=== PATIENT | female | born 1965 | race Caucasian/White ===

== ENCOUNTER → 2020-03-18 13:16 | Outpatient (BNVA) | payer SELFPAY | PROVIDERS: Visit Provider Emergency Medicine | DX: N89.8 Other specified noninflammatory disorders of vagina (principal) | CPT/HCPCS: 81000; 87086; 87491; 87591; 87661 ==

== ENCOUNTER 2023-02-27 17:25 | Inpatient (IN) | payer MEDICAID, SELFPAY ==
[2023-02-27] VITALS (11 sets, daily range): BP systolic 78–101; BP diastolic 53–65; PULSE 107–135; RESP 19–41; O2SAT 92–98; BMI 29.1
--- NOTE | 2023-02-27 17:32 | XRR_ITS ---
PROCEDURE INFORMATION: Exam: XR Chest Exam date and time: 02/27/2023 5:45 PM Age: 57 years old Clinical indication: Shortness of breath; Additional info: Dyspnea TECHNIQUE: Imaging protocol: Radiologic exam of the chest. Views: 1 view. COMPARISON: No relevant prior studies available. FINDINGS: Lungs: 9.2 cm round masslike consolidation in the left upper lobe. Mild atelectasis in the left lung base. The right lung is clear. Pleural spaces: Unremarkable. No pleural effusion. No pneumothorax. Heart/Mediastinum: Unremarkable. No cardiomegaly. Diaphragm: Mild elevation of the right diaphragm. Bones/joints: Mild thoracic curvature. XR/XR chest 1V portable [id number] IMPRESSION: 1. Masslike consolidation in the left upper lobe. This could represent round pneumonia but a large malignant neoplasm is not excluded. Follow-up with a CT chest is recommended.
--- NOTE | 2023-02-27 17:43 | W.ED.SOB ---
HPI - SOB/Dyspnea General: Chief Complaint: Shortness of Breath/Dyspnea Stated Complaint: resp distress Time Seen by Provider: 02/27/23 17:29 History of Present Illness: HPI Narrative: Patient presents to the ER by EMS with complaints of overall body aches and shortness of breath. She also says she has chest pain when she coughs. Patient says she has had a fever but upon admission here she does not have a fever. EMS said when she walked to the ambulance her sat was 75% on room air. Patient gave 1-03/07 albuterol nebulizer treatments and 1 DuoNeb treatment on route. Patient was going to get aspirin for EMS but she refused it. Patient's O2 sat upon arrival was 98% on 4 L respirations 22 with a heart rate of 135 beats a minute. Review of Systems General: Reports: 10 or more systems reviewed and unremarkable except in HPI and below PFSH ED PFSH: Social History Smoking and tobacco/nicotine status: current every day tobacco/nicotine user cigarettes Alcohol intake: current Alcohol intake frequency: few times a month Substance/Drug Use: never Physical Exam Const: COMMON NORMALS: no acute distress, average body habitus, patient oriented x3, no limitations, healthy appearing, alert and well nourished HENMT: COMMON NORMALS: normocephalic, atraumatic, hearing grossly normal bilaterally, external ears normal, Normal external nose present, moist oral mucous membranes and oropharynx normal HEAD & SCALP: normocephalic and atraumatic NOSE: Normal external nose present EXTERNAL EAR: Yes external ears normal Eye: COMMON NORMALS: Equal, round and reactive pupils present, EOMs intact bilaterally, conjunctivae normal and no scleral icterus CONJUNCTIVA: Yes conjunctivae normal PUPIL: Yes Equal, round and reactive pupils present Neck/C-Spine: COMMON NORMALS: no JVD Chest: COMMONS NORMALS: normal inspection of the chest and normal palpation of entire chest wall Resp: COMMON NORMALS: normal respiratory effort, No retractions and No use of accessory muscles; negative for clear to auscultation bilaterally (Diffuse rhonchi bilaterally) AUSCULTATION: not clear to auscultation bilaterally (Diffuse rhonchi bilaterally) Cardio: COMMON NORMALS: no JVD, regular rhythm, S1 normal heart sound present, S2 normal heart sound present, No gallops present (Cardio), No clicks present (Cardio), No murmurs present (Cardio) and No rub (Cardio); negative for regular rate (Tachycardic) RATE: abnormal rate (Tachycardic) RHYTHM: regular rhythm HEART SOUNDS: S1 normal heart sound present and S2 normal heart sound present GI: COMMON NORMALS: Normal to inspection, nondistended, normoactive bowel sounds present, Soft to palpation, non-tender, No hepatosplenomegaly present and no masses PALPATION: Yes Soft to palpation and Yes No hepatosplenomegaly present Neuro: COMMON NORMALS: patient oriented x3 SENSORIUM/ORIENTATION: Yes alert Course Vital Signs: Vital signs: Vital Signs Pulse Rate 135 H 02/27/23 17:36 Respiratory Rate 22 H 02/27/23 17:36 Blood Pressure 101/57 02/27/23 17:36 Pulse Oximetry 98 02/27/23 17:36 Oxygen Delivery Me thod Nasal Cannula 02/27/23 17:36 Oxygen Flow Rate 4 02/27/23 17:36 MDM - SOB/Dyspnea Medical Decision Making Patient had lab work done that showed a white count of 25.9 potassium 3.1 elevated BUN/creatinine of 28 and 2.6 and magnesium 1.2 elevated procalcitonin at 35.37 negative for influenza and COVID. X-ray and CT scan showed a large masslike consolidation in the left upper lobe could represent pneumonia or neoplasm. Patient was given 1 g magnesium, 2 L normal saline bolus, 3.375 g of Zosyn, Dr. Hennessy was consulted who agreed patient needed inpatient treatment for further evaluation. Differential Diagnosis Likely community acquired pneumonia; Unlikely acute exacerbation of chronic obstructive airways disease, congestive heart failure, asthma with exacerbation or pulmonary embolism Medical Records I reviewed the patient's medical records. Lab Data I reviewed the patient's lab results. 02/27/23 17:54 02/27/23 17:54 Labs/Radiology: Radiology Impressions Chest X-Ray 02/27/23 17:32 IMPRESSION: 1. Masslike consolidation in the left upper lobe. This could represent round pneumonia but a large malignant neoplasm is not excluded. Follow-up with a CT chest is recommended. Chest CT 02/27/23 18:37 IMPRESSION: 1. Large masslike consolidation in the left upper lobe with loss of air bronchograms. This could represent pneumonia, but a malignant neoplasm can not be excluded. Consider non-emergent PET/CT, or tissue sampling.(Reference: Iban) 2. Prominent axillary, mediastinal, and left hilar lymph nodes are most likely reactive. Neoplastic involvement can not be entirely excluded. References: Iban Cabezas et al. Guidelines for Management of Incidental Pulmonary Nodules Detected on CT Images: From the Fleischner Society 2017. Radiology. 2017;284(1):228-243. Laboratory Results WBC 25.92 10^3/uL (3.29-11.43) H 02/27/23 17:54 RBC 3.86 10^6/uL (3.85-5.65) 02/27/23 17:54 Hgb 11.70 g/dL (11.27-16.99) 02/27/23 17:54 Hct 34.8 % (36-47) L 02/27/23 17:54 MCV 90.2 fl (85-98) 02/27/23 17:54 MCH 30.3 pg (27-33) 02/27/23 17:54 MCHC 33.6 g/dL (30-55) 02/27/23 17:54 RDW 13.1 % (12.1-15.1) 02/27/23 17:54 Plt Count 360 10^3/cmm (157-399) 02/27/23 17:54 MPV 8.8 fL (7.4-10.4) 02/27/23 17:54 Lymph % (Auto) Not Reportable 02/27/23 17:54 [place] % (Auto) Not Reportable 02/27/23 17:54 Lymph # (Auto) Not Reportable 02/27/23 17:54 [place] # (Auto) Not Reportable 02/27/23 17:54 Total Counted 100 (0-100) 02/27/23 17:54 Atypical Lymphs % Not Reportable 02/27/23 17:54 Absolute Neutrophils 23.1 10^3/cmm (1.4-6.5) H 02/27/23 17:54 Segmented Neutrophils 84 % 02/27/23 17:54 Abs Segm Neuts (Man) 21.8 10/cmm (1.6-7.1) H 02/27/23 17:54 Band Neutrophils 5.0 % 02/27/23 17:54 Abs Band Neuts (Man) 1.3 10^3/cmm (0.0-1.2) H 02/27/23 17:54 Lymphocytes (Manual) 4 % 02/27/23 17:54 Monocytes (Manual) 1.0 % 02/27/23 17:54 Absolute Monocytes 0.3 10^3/cmm (0.1-0.6) 02/27/23 17:54 Eosinophils (Manual) 0 % 02/27/23 17:54 Absolute Eosinophils 0.0 10^3/cmm (0.0-0.7) 02/27/23 17:54 Basophils (Manual) 0.0 % 02/27/23 17:54 Absolute Basophils 0.0 10^3/cmm (0.0-0.2) 02/27/23 17:54 Platelet Estimate Normal (Normal) 02/27/23 17:54 Giant Platelets Trace 02/27/23 17:54 Sodium 128 mmol/L (136-145) L 02/27/23 17:54 Potassium 3.1 mmol/L (3.5-5.1) L 02/27/23 17:54 Chloride 92 mmol/L (98-107) L 02/27/23 17:54 Carbon Dioxide 19 mmol/L (22-29) L 02/27/23 17:54 Anion Gap 20.1 (5-19) H 02/27/23 17:54 BUN 28 mg/dL (6-20) H 02/27/23 17:54 Creatinine 2.6 mg/dL (0.5-0.9) H 02/27/23 17:54 GFR Calculation 19.0 mL/min (90-130) L 02/27/23 17:54 Glucose 137 mg/dL (65-115) H 02/27/23 17:54 Calculated Osmolality 274 mOsm/kg (285-295) L 02/27/23 17:54 Calcium 7.8 mg/dL (8.5-10.5) L 02/27/23 17:54 Magnesium 1.2 mg/dL (1.7-2.3) L 02/27/23 17:54 Total Bilirubin 0.8 mg/dL (0.15-1.2) 02/27/23 17:54 AST 13 U/L (0-32) 02/27/23 17:54 ALT 7 U/L (0-33) 02/27/23 17:54 Alkaline Phosphatase 89 U/L (35-105) 02/27/23 17:54 Troponin T Baseline 38 ng/L (0-10) H 02/27/23 17:54 Total Protein 6.0 g/dL (6.6-8.7) L 02/27/23 17:54 Albumin 3.4 g/dL (3.5-5.2) L 02/27/23 17:54 Globulin 2.6 g/dL (1.3-4.6) 02/27/23 17:54 Procalcitonin 35.37 ng/mL (0-0.5) H 02/27/23 17:54 Influenza Type A Ag negative (Negative) 02/27/23 18:30 Influenza Type B Ag negative (Negative) 02/27/23 18:30 SARS-CoV-2 Ag (Rapid) Negative (Negative) 02/27/23 18:30 All radiology interpretation(s) finalized by discharge EKG Data EKG 1: I personally reviewed and interpreted this EKG as follows: EKG Interpretation Date: 02/27/23 EKG interpretation time: 17:45 Prior EKG tracings: not available for review Interpretation: EKG showed ventricular rate 132 beats minute, SC interval 168, QRS duration 82, QTc of 360, sinus tachycardia Discharge Plan Discharge Patient Disposition: Admitted As Inpatient Clinical Impression: Community acquired pneumonia, Mass of upper lobe of left lung, Leukocytosis, Hypomagnesemia, Acute hypoxemic respiratory failure Condition: Stable Coding Level of Care Code ED [employer] Pump Tender for Judith Lenz
--- NOTE | 2023-02-27 17:45 | ECG_ITS ---
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 Measurements Intervals [place] Rate: 132 P: 60 MN: 168 QRS: 80 QRSD: 82 T: 65 QT: 282 QTc: 418 Interpretive Statements SINUS TACHYCARDIA No previous ECG available for comparison Electronically Signed On 02-27-2023 22:58:18 [employer] by Leland Wu M.D. [id number]
[2023-02-27 18:01] LABS: Hematocrit 34.8 % (36-47); Mean Corpuscular HGB Conc 33.6 g/dL (30-55); Mean Corpuscular Hemoglobin 30.3 pg (27-33); Mean Corpuscular Volume 90.2 fl (85-98); Mean Platelet Volume 8.8 fL (7.4-10.4); Platelet Count 360 10^3/cmm (157-399); Red Blood Count 3.86 10^6/uL (3.85-5.65); Red Cell Distribution Width 13.1 % (12.1-15.1); White Blood Count 25.92 10^3/uL (3.29-11.43)
[2023-02-27] MEDS: sodium chloride 0.9% 1,000 ML 999 ML IV ×3 (18:18→21:35)
[2023-02-27 18:28] LABS: Troponin(5th) Baseline 38 ng/L (0-10)
[2023-02-27 18:32] LABS: Alanine Aminotransferase 7 U/L (0-33); Albumin Level 3.4 g/dL (3.5-5.2); Alkaline Phosphatase 89 U/L (35-105); Anion Gap 20.1 (5-19); Aspartate Amino Transferase 13 U/L (0-32); Blood Urea Nitrogen 28 mg/dL (6-20); Calcium 7.8 mg/dL (8.5-10.5); Carbon Dioxide 19 mmol/L (22-29); Chloride 92 mmol/L (98-107); Globulin 2.6 g/dL (1.3-4.6); Glucose 137 mg/dL (65-115); Magnesium 1.2 mg/dL (1.7-2.3); Osmolality Calculated 274 mOsm/kg (285-295); Potassium 3.1 mmol/L (3.5-5.1); Sodium 128 mmol/L (136-145); Total Bilirubin 0.8 mg/dL (0.15-1.2)
--- NOTE | 2023-02-27 18:37 | CTR_ITS ---
PROCEDURE INFORMATION: Exam: CT Chest Without Contrast; Diagnostic Exam date and time: 02/27/2023 6:35 PM Age: 57 years old Clinical indication: Shortness of breath; Additional info: Abnormal cxr, mass, hypoxia, tachycardia TECHNIQUE: Imaging protocol: Diagnostic computed tomography of the chest without contrast. Radiation optimization: All CT scans at this facility use at least one of these dose optimization techniques: automated exposure control; mA and/or kV adjustment per patient size (includes targeted exams where dose is matched to clinical indication); or iterative reconstruction. REPORTING DATA: Count of CT and Cardiac NM exams in prior 12 months: This patient has received 0 known CTs and 0 known cardiac nuclear medicine studies in the 12 months prior to the current study. COMPARISON: CR (CHEST, ) 02/27/2023 5:45 PM RADIATION DOSE METRICS: Total DLP (mGy-cm): 446.81 FINDINGS: Lungs: 10.1 cm masslike consolidation in the superior peripheral left upper lobe with loss of air bronchograms. Mild dependent atelectasis in the left lower lobe. The lungs are otherwise clear. Pleural spaces: Trace left pleural effusion. No pneumothorax. Heart: No coronary artery calcifications. No cardiomegaly. No pericardial effusion. Lymph nodes: Prominent axillary, mediastinal and left hilar lymph nodes, measuring less than 1.0 cm short axis. Vasculature: Unremarkable. No aortic aneurysm. Liver: Hepatomegaly with diffuse fatty infiltration. Bones/joints: Mild degenerative changes of the spine. No fracture or destructive bone lesion identified. Soft tissues: Unremarkable. CT/CT chest wo con [id number] IMPRESSION: 1. Large masslike consolidation in the left upper lobe with loss of air bronchograms. This could represent pneumonia, but a malignant neoplasm can not be excluded. Consider non-emergent PET/CT, or tissue sampling.(Reference: Iban) 2. Prominent axillary, mediastinal, and left hilar lymph nodes are most likely reactive. Neoplastic involvement can not be entirely excluded. References: Iban Cabezas et al. Guidelines for Management of Incidental Pulmonary Nodules Detected on CT Images: From the Fleischner Society 2017. Radiology. 2017;284(1):228-243.
[2023-02-27 18:39] LABS: Procalcitonin 35.37 ng/mL (0-0.5)
[2023-02-27 18:51] LABS: Absolute Neutrophil 23.1 10^3/cmm (1.4-6.5); Absolute Segmented Neutrophil 21.8 10/cmm (1.6-7.1); Band Neutrophils Absolute 1.3 10^3/cmm (0.0-1.2); Eosinophils 0 %; Giant Platelets Trace; Lymphocytes 4 %; Monocytes Absolute 0.3 10^3/cmm (0.1-0.6); Platelet Estimate Normal (Normal); Segmented Neutrophils 84 %; Slide Review Slide Review Perform; Total Cells Counted 100 (0-100)
[2023-02-27 18:55] LABS: Influenza A by IFA negative (Negative); Influenza B by IFA negative (Negative)
[2023-02-27 18:58] LABS: SARS Covid-2 Antigen Negative (Negative)
[2023-02-27] MEDS: piperacillin-tazobactam 3.375 GM in sodium chloride 0.9% (plus) 50 ML IV (20:00)
[2023-02-27 20:50] LABS: Troponin 5 2HR 27.83 ng/L (0-10)
[2023-02-27] MEDS: acetaminophen 500 mg Tablet 1000 MG PO (20:53)
[2023-02-27 21:01] LABS: Lactic Sepsis W/Reflex 4.6 mmol/L (0.5-2.2)
--- NOTE | 2023-02-27 22:04 | ECG_ITS ---
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 Measurements Intervals [place] Rate: 116 P: 55 TN: 170 QRS: 79 QRSD: 88 T: 65 QT: 315 QTc: 439 Interpretive Statements SINUS TACHYCARDIA Compared to ECG 02/27/2023 17:45:16 No significant changes Electronically Signed On 02-27-2023 23:00:33 PROJECT DEVELOPMENT DIRECTOR by Leland Wu M.D. [id number]
[2023-02-27] MEDS: norepinephrine 4 MG/250 ML BAG 18.75 MG IV (22:10)
--- NOTE | 2023-02-27 22:13 | CTR_ITS ---
PROCEDURE INFORMATION: Exam: CT Abdomen And Pelvis Without Contrast Exam date and time: 02/27/2023 10:25 PM Age: 57 years old Clinical indication: Other: Rubio/hypotension; Patient HX: Rubio with hypotension; Additional info: Rubio, evalaute for hydronpehrosis, rubio, evaluate for hydro nephrosis TECHNIQUE: Imaging protocol: Computed tomography of the abdomen and pelvis without contrast. Radiation optimization: All CT scans at this facility use at least one of these dose optimization techniques: automated exposure control; mA and/or kV adjustment per patient size (includes targeted exams where dose is matched to clinical indication); or iterative reconstruction. REPORTING DATA: Count of CT and Cardiac NM exams in prior 12 months: This patient has received 0 known CTs and 0 known cardiac nuclear medicine studies in the 12 months prior to the current study. COMPARISON: CT chest wo con [id number] 02/27/2023 6:35 PM RADIATION DOSE METRICS: Total DLP (mGy-cm): 875.8 FINDINGS: Liver: Hepatomegaly with diffuse fatty infiltration. No suspicious nodule. Gallbladder and bile ducts: Multiple small calcified stones in a contracted gallbladder. The bile ducts are normal. Pancreas: Normal. No ductal dilation. Spleen: Normal. No splenomegaly. Adrenal glands: Normal. No mass. Kidneys and ureters: Normal. No hydronephrosis. Stomach and bowel: 3.2 cm fat density oval lipoma arising from the posterior wall of the mid stomach. The stomach is otherwise unremarkable. Diverticulosis of the colon. No diverticulitis. The small bowel is unremarkable. No wall thickening or obstruction. Appendix: The appendix is visualized and is normal. Intraperitoneal space: Unremarkable. No free air. No significant fluid collection. Vasculature: Unremarkable. No abdominal aortic aneurysm. Lymph nodes: Unremarkable. No enlarged lymph nodes. Urinary bladder: Unremarkable as visualized. Reproductive: Unremarkable as visualized. Bones/joints: Degenerative changes of the spine. No acute fracture. Soft tissues: Fat containing bilateral inguinal hernias. CT/CT abdomen pelvis wo con [id number] IMPRESSION: 1. No acute findings. 2. Contracted gallbladder with multiple small calcified stones. 3. 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
[2023-02-27 22:17] LABS: Reflex Lactate Order REFLEX LACTIC ORDERD
--- NOTE | 2023-02-27 22:18 | P.HP_ITS ---
Providers/Chief Complaint 2 Admitting Physician: Lexus Navarro MD Primary Care Provider: Conrado Wills Chief Complaint: resp distress History of Present Illness Brandi Reyez is a 57 year old female who is coming to the hospital today with chief complaints of 4 to 5 days of worsening chest discomfort and dyspnea on exertion. Patient states that she was in her usual state of health about 5 days ago when she developed a runny nose and flulike symptoms. Symptoms continued to progress over the next 4 to 5 days when she started feeling short of breath with usual activities. Today she is needing 4 L/min, never previously having been on oxygen. Has a mostly dry cough, minimal expectoration. No hemoptysis. She had 1 episode of vomiting today. No diarrhea. No abdominal pain. She is a chronic smoker. No known history of asthma or COPD. States that she has not peed in the last 24 hours and feels very dehydrated. Endorses fatigue. Sick contacts at home with a young grandson with similar symptoms. Past history notable for history of GI bleeding, patient states that her stomach blew out and she lost a lot of blood. States that bleeding was controlled by cauterization. These events happened at a hospital in [facility] about 2 years ago. She does not know if she had a ulcer or other mass lesions at that time. She was scheduled to undergo an endoscopy in the last 4 to 5 days, however was unable to get it because she felt unwell. Reports she also had double pneumonia earlier this year. She is unvaccinated for influenza. CT of her chest shows large Left-sided masslike consolidation with loss of air bronchograms. Possibly pneumonia given her current history. Possibility of malignant neoplasm not excluded. Prominent axillary mediastinal and lymph nodes noted which are thought to be reactive. Has been experiencing chills. Initially upon ER arrival her blood pressure was well-maintained, however subsequently she developed hypotension and spite of 2 L fluid resuscitation. At the time of my examination blood pressure is 69/53. Requested additional 1 L fluid bolus now and initiation of Levophed infusion. Review of Systems 2 General: Reports: 10 or more systems reviewed and unremarkable except in HPI and below Const: Denies: fever(s), chills or body aches Eyes: Denies: change in vision, blurry vision or photophobia ENMT: Reports: hoarseness; Denies: throat pain, enlarged tonsils, odynophagia or nasal congestion Card: Denies: chest pain, palpitations, irregular heart rhythm, edema, swelling of feet/ankles, lightheadedness, pre-syncope, dyspnea on exertion or orthopnea Resp: Denies: dyspnea, productive cough, non-productive cough, wheezing, stridor, pain on inspiration, change in phlegm color, hemoptysis or chest congestion GI: Denies: abdominal pain, nausea, vomiting, hematemesis, coffee ground emesis, dysphagia, heartburn, diarrhea, constipation, GI cramping, change in stool character, hematochezia or melena : Denies: flank pain, difficulty voiding, dysuria, urinary frequency, urinary urgency, urinary hesitancy or hematuria Musc: Denies: neck pain, back pain, extremity pain, joint swelling, joint warmth or deformity Neuro: Denies: headache(s), numbness in extremities, weakness in extremities, sensory changes, difficulty walking, frequent falls, dizziness, vertigo, behavioral changes, Slurred speech present or seizure-like activity Psych: Denies: anxiety, depression, suicidal ideation or homicidal ideation Endo: Denies: polyuria, polydipsia, tired all the time, cold intolerance or hot flashes Larry/Lymph: Denies: easy bruising or easy bleeding Medications/Allergies Home Medications Medication Instructions Recorded Confirmed Last Taken Type azithromycin 500 mg tablet 1,000 mg (2 x 500 mg) PO .COMPLEX 03/18/20 03/18/20 Unknown Rx 1 day #2 tabs metronidazole 500 mg tablet 500 mg PO Q8H 7 days #21 tabs 03/18/20 03/18/20 Unknown Rx Allergies Allergy/AdvReac Type Severity Reaction Status Date / Time No Known Allergies Allergy Verified 03/18/20 12:41 PFSH Acute 2 PFSH: Medical History (Updated 02/27/23 @ 23:51 by Lexus Navarro MD) History of GI bleed Social History Smoking and tobacco/nicotine status: current every day tobacco/nicotine user cigarettes Alcohol intake: current Alcohol intake frequency: few times a month Substance/Drug Use: never Vitals/I&O/Wt Last Vital Signs Pulse 120 H 02/27/23 21:44 Resp 23 H 02/27/23 21:44 BP 78/53 02/27/23 21:44 Pulse Ox 96 02/27/23 21:44 O2 Del Method Nasal Cannula 02/27/23 17:36 O2 Flow Rate 4 02/27/23 17:36 02/27/23 02/27/23 02/27/23 06:59 14:59 22:59 Intake Total 2049 Balance 2049 Weight last 48 hrs Weight 79.379 kg Physical Exam 2 Narrative: General: Extremely anxious, AO x3 HEENT: PERRLA, pupils bilaterally equal and reactive, pallors not present Chest: Normal vesicular breath sounds, no added sounds, equal good air entry bilaterally CVS: S1-S2 regular, no murmurs, no tachycardia, no gallops, no rubs Abdomen: Soft, nontender, no organomegaly, bowel sounds present Neuro: No focal deficits, no facial deformity, AO x3, power 5/5 in all limbs, capillary refill normal Data 02/27/23 17:54 02/27/23 17:54 Other data: Radiology Impressions Chest X-Ray 02/27/23 17:32 IMPRESSION: 1. Masslike consolidation in the left upper lobe. This could represent round pneumonia but a large malignant neoplasm is not excluded. Follow-up with a CT chest is recommended. Chest CT 02/27/23 18:37 IMPRESSION: 1. Large masslike consolidation in the left upper lobe with loss of air bronchograms. This could represent pneumonia, but a malignant neoplasm can not be excluded. Consider non-emergent PET/CT, or tissue sampling.(Reference: Iban) 2. Prominent axillary, mediastinal, and left hilar lymph nodes are most likely reactive. Neoplastic involvement can not be entirely excluded. References: Iban Cabezas, et al. Guidelines for Management of Incidental Pulmonary Nodules Detected on CT Images: From the Fleischner Society 2017. Radiology. 2017;284(1):228-243. Laboratory Results WBC 25.92 10^3/uL (3.29-11.43) H 02/27/23 17:54 RBC 3.86 10^6/uL (3.85-5.65) 02/27/23 17:54 Hgb 11.70 g/dL (11.27-16.99) 02/27/23 17:54 Hct 34.8 % (36-47) L 02/27/23 17:54 MCV 90.2 fl (85-98) 02/27/23 17:54 MCH 30.3 pg (27-33) 02/27/23 17:54 MCHC 33.6 g/dL (30-55) 02/27/23 17:54 RDW 13.1 % (12.1-15.1) 02/27/23 17:54 Plt Count 360 10^3/cmm (157-399) 02/27/23 17:54 MPV 8.8 fL (7.4-10.4) 02/27/23 17:54 Lymph % (Auto) Not Reportable 02/27/23 17:54 [place] % (Auto) Not Reportable 02/27/23 17:54 Lymph # (Auto) Not Reportable 02/27/23 17:54 [place] # (Auto) Not Reportable 02/27/23 17:54 Total Counted 100 (0-100) 02/27/23 17:54 Atypical Lymphs % Not Reportable 02/27/23 17:54 Absolute Neutrophils 23.1 10^3/cmm (1.4-6.5) H 02/27/23 17:54 Segmented Neutrophils 84 % 02/27/23 17:54 Abs Segm Neuts (Man) 21.8 10/cmm (1.6-7.1) H 02/27/23 17:54 Band Neutrophils 5.0 % 02/27/23 17:54 Abs Band Neuts (Man) 1.3 10^3/cmm (0.0-1.2) H 02/27/23 17:54 Lymphocytes (Manual) 4 % 02/27/23 17:54 Monocytes (Manual) 1.0 % 02/27/23 17:54 Absolute Monocytes 0.3 10^3/cmm (0.1-0.6) 02/27/23 17:54 Eosinophils (Manual) 0 % 02/27/23 17:54 Absolute Eosinophils 0.0 10^3/cmm (0.0-0.7) 02/27/23 17:54 Basophils (Manual) 0.0 % 02/27/23 17:54 Absolute Basophils 0.0 10^3/cmm (0.0-0.2) 02/27/23 17:54 Platelet Estimate Normal (Normal) 02/27/23 17:54 Giant Platelets Trace 02/27/23 17:54 Sodium 128 mmol/L (136-145) L 02/27/23 17:54 Potassium 3.1 mmol/L (3.5-5.1) L 02/27/23 17:54 Chloride 92 mmol/L (98-107) L 02/27/23 17:54 Carbon Dioxide 19 mmol/L (22-29) L 02/27/23 17:54 Anion Gap 20.1 (5-19) H 02/27/23 17:54 BUN 28 mg/dL (6-20) H 02/27/23 17:54 Creatinine 2.6 mg/dL (0.5-0.9) H 02/27/23 17:54 GFR Calculation 19.0 mL/min (90-130) L 02/27/23 17:54 Glucose 137 mg/dL (65-115) H 02/27/23 17:54 Calculated Osmolality 274 mOsm/kg (285-295) L 02/27/23 17:54 Lactic Acid 4.6 mmol/L (0.5-2.2) H* 02/27/23 20:16 Calcium 7.8 mg/dL (8.5-10.5) L 02/27/23 17:54 Magnesium 1.2 mg/dL (1.7-2.3) L 02/27/23 17:54 Total Bilirubin 0.8 mg/dL (0.15-1.2) 02/27/23 17:54 AST 13 U/L (0-32) 02/27/23 17:54 ALT 7 U/L (0-33) 02/27/23 17:54 Alkaline Phosphatase 89 U/L (35-105) 02/27/23 17:54 Troponin T Baseline 38 ng/L (0-10) H 02/27/23 17:54 Troponin T 120 Minute 27.83 ng/L (0-10) H 02/27/23 20:16 Delta Troponin T -10.17 ABS# (0-10) L 02/27/23 20:16 Total Protein 6.0 g/dL (6.6-8.7) L 02/27/23 17:54 Albumin 3.4 g/dL (3.5-5.2) L 12/25/23 17:54 Globulin 2.6 g/dL (1.3-4.6) 02/27/23 17:54 Procalcitonin 35.37 ng/mL (0-0.5) H 02/27/23 17:54 Influenza Type A Ag negative (Negative) 02/27/23 18:30 Influenza Type B Ag negative (Negative) 02/27/23 18:30 SARS-CoV-2 Ag (Rapid) Negative (Negative) 02/27/23 18:30 A&P Assessment and plan (1) Septic shock: Septic shock, as evidenced by leukocytosis 25,000, sinus tachycardia at 120, tachypnea with current respiratory rate between 23-30, signs of endorgan failure by way of acute kidney injury, acute hypoxia, elevated lactate at 4.6. Patient has thus far received 2 L fluid bolus in the emergency room however continues to be hypotensive with systolic blood pressure at 69 at the time of my assessment. Requested additional 1 L bolus and initiation of pressor support with Levophed. Titrate to a map of 65. Blood cultures collected prior to initiation of antibiotics. Repeat lactate after hydration. Reassess capillary refill status after more fluids Source currently appears to be community-acquired pneumonia. Thus far received piperacillin/tazobactam which we will continue. Additionally added empiric vancomycin. Patient reports having had pneumonia earlier this year as well, does not know the organism. Would prefer to keep MRSA covered while awaiting microbiological data. Add azithromycin for atypical coverage. Check sputum culture and Gram stain, MRSA nasal screen, urine bacterial antigens and Legionella antigen DuoNeb inhalation as needed Admit to ICU given need for pressor support for hypotension. (2) Community acquired pneumonia: CT findings as noted above Empiric antibiotic coverage with piperacillin/tazobactam, vancomycin and azithromycin Pending sputum culture MRSA screen Patient reports that this is second episode of pneumonia this year. Will eventually likely require radiological follow-up in in a few weeks to ascertain clearance and if has a persistent consolidation will likely need pulmonology referral and further evaluation. Qualifiers: Laterality: left Lung location: upper lobe of lung Qualified Code(s): J18.9 - Pneumonia, unspecified organism (3) Acute hypoxemic respiratory failure: As a result of community-acquired pneumonia Supplemental O2 to keep saturation above 92%. (4) Acute kidney injury: Likely as a result of septic shock, ATN UA ordered, pending currently. No prior baseline creatinine available for review. Today creatinine is at 2.6, presumably new. Hydration as above, reassess after hydration Place Doll catheter to chart accurate output. Patient states she has not voided urine in the last 1 to 2 days. Does not appear to have any overt bladder outlet obstruction. Check CT KUB to assess for any hydronephrosis or obstructing stones. (5) Hypomagnesemia: Likely dehydration, replete IV (6) Hypokalemia: Likely dehydration, replete IV (7) Hyponatremia: Likely dehydration, normal saline, repeat with a.m. labs Plan Anxiety: Ordered as needed alprazolam. DVT prophylaxis: SCDs only. History of GI bleed 2 years ago, she was recently planned to undergo endoscopic evaluation. This appears to be surveillance per patient description. Awaiting CT abdomen. Would want to rule out any gastric mass prior to placing her on anticoagulation. Full code Attestations 2 Medical Necessity Statement*: Greater than 2 midnight admission is anticipated for above defined care. Critical Care Time: The high probability of a clinically significant, sudden or life threatening deterioration of the patient's [circulatory, respiratory, ID ] system(s) required my full and direct attention, intervention and personal management. The critical care time is as shown. This time is in addition to time spent performing any reported procedures but includes the following: [x] Data and vital sign review and interpretation [x] Patient assessment, examination and intervention [x] Documentation [x] Medication orders and management Critical Care Time (min): 70 Coding Level of Care Code Critical Care >/= 30 minutes Diagnoses Septic shock A41.9; R65.21 Community acquired pneumonia J18.9 Laterality: left Lung location: upper lobe of lung Acute hypoxemic respiratory failure J96.01 Acute kidney injury N17.9 Hypomagnesemia E83.42 Hypokalemia E87.6 Hyponatremia E87.1
--- NOTE | 2023-02-27 23:33 | ECG_ITS ---
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 Measurements Intervals [place] Rate: 108 P: 59 LA: 206 QRS: 80 QRSD: 90 T: 72 QT: 386 QTc: 518 Interpretive Statements SINUS TACHYCARDIA NONSPECIFIC T-WAVE ABNORMALITY ABNORMAL RHYTHM ECG Compared to ECG 02/27/2023 22:04:17 T-wave abnormality now present Electronically Signed On 03-01-2023 0:32:53 BLOCK ENGRAVER by Chuck Martinez M.D. [email or web address]
[2023-02-28] VITALS (106 sets, daily range): BP systolic 74–122; BP diastolic 38–92; PULSE 99–129; RESP 14–54; TEMP 36.8–38.7; O2SAT 81–100; BMI 32.4
[2023-02-28 00:07] LABS: Amphetamines Screen Urine Positive (Negative); Barbiturates Screen Urine Negative (Negative); Benzodiazepines Screen Urine Positive (Negative); Cocaine Screen Urine Negative (Negative); Opiate Screen Urine Negative (Negative); PCP Screen Urine Negative (Negative); THC Screen Urine Negative (Negative)
[2023-02-28 00:08] LABS: Urine Appearance Hazy (CLEAR); Urine Color Yellow (Yellow)
[2023-02-28 00:09] LABS: Add Urine Culture? No; Add Urine Microscopic? YES; Bacteria Urine 1+ /hpf; Bilirubin Urine Neg (Negative); Blood Urine 3+ (Negative); Glucose Urine UA Norm (Normal); Ketones Urine Negative (Negative); Leukocyte Esterase Urine Negative (Negative); Mucus Urine 1+ /hpf; Nitrate Urine Negative (Negative); Protein Urine Trace (Negative); RBC Urine 0-4 /hpf (0-2); Specific Gravity, Urine 1.005 (1.005-1.030); Urobilinogen Urine Neg (Negative); pH Urine 5 (5-7)
[2023-02-28] MEDS: azithromycin 500 MG in sodium chloride 0.9% 250 ML 250 MG IV ×2 (00:28→23:50)
[2023-02-28] MEDS: sodium chloride 0.9% 1,000 ML 75 ML IV ×2 (00:30→07:03)
[2023-02-28 00:31] LABS: Lactic Acid level (Lactate) 3.2 mmol/L (0.5-2.2); Troponin 5 6HR 31.43 ng/L (0-10)
[2023-02-28 00:33] LABS: Troponin 5 6HR Delta -6.57 ng/L (0-12)
[2023-02-28] MEDS: magnesium sulfate premix 1 GM/100 ML PIGGYBACK IV (02:21)
[2023-02-28] MEDS: piperacillin-tazobactam 3.375 GM in sodium chloride 0.9% (plus) 50 ML IV ×3 (03:26→18:19)
[2023-02-28 03:39] LABS: Hematocrit 34.3 % (36-47); Lymphocytes # 1.1 10^3/uL (0.8-4.8); Lymphocytes % 4.4 %; Mean Corpuscular HGB Conc 32.7 g/dL (30-55); Mean Corpuscular Hemoglobin 29.7 pg (27-33); Mean Platelet Volume 9.1 fL (7.4-10.4); Monocytes # 0.2 10^3/uL (0.2-0.9); Monocytes % 0.9 %; Neutrophils # 20.42 10^3/uL (1.8-7.7); Neutrophils % 85.3 %; Nucleated Red Blood Cells % 0 %; Platelet Count 375 10^3/cmm (157-399); Red Blood Count 3.77 10^6/uL (3.85-5.65); Red Cell Distribution Width 13.2 % (12.1-15.1); White Blood Count 23.96 10^3/uL (3.29-11.43)
[2023-02-28 04:04] LABS: Slide Review Slide Review Perform
[2023-02-28 04:07] LABS: Magnesium 1.7 mg/dL (1.7-2.3)
[2023-02-28 04:15] LABS: Alanine Aminotransferase 6 U/L (0-33); Albumin Level 2.9 g/dL (3.5-5.2); Alkaline Phosphatase 81 U/L (35-105); Anion Gap 17.8 (5-19); Aspartate Amino Transferase 12 U/L (0-32); Blood Urea Nitrogen 25 mg/dL (6-20); Calcium 7.5 mg/dL (8.5-10.5); Carbon Dioxide 17 mmol/L (22-29); Chloride 103 mmol/L (98-107); Glomerular Filtration Rate 38.9 mL/min (90-130); Glucose 136 mg/dL (65-115); Osmolality Calculated 286 mOsm/kg (285-295); Sodium 135 mmol/L (136-145); Total Bilirubin 0.5 mg/dL (0.15-1.2); Total Protein 5.9 g/dL (6.6-8.7)
[2023-02-28 04:18] LABS: HIV 1 & 2 Antibody Non-Reactive (Non-Reactiv); HIV 1 & 2 Antigen Non-Reactive (Non-Reactiv)
[2023-02-28 04:24] LABS: Potassium 2.8 mmol/L (3.5-5.1)
[2023-02-28] MEDS: ipratropium-albuterol 3 mL Neb INHALATION ×2 (04:34→09:07)
[2023-02-28] MEDS: potassium chloride premix 100 ML 50 MEQ IV (04:56)
[2023-02-28 06:34] LABS: Lactic Sepsis W/Reflex 3.8 mmol/L (0.5-2.2)
[2023-02-28] MEDS: potassium chloride premix 100 ML 25 MEQ IV (07:45)
[2023-02-28 07:56] LABS: Reflex Lactate Order REFLEX LACTIC ORDERD
--- NOTE | 2023-02-28 07:57 | USCV_ITS ---
Brandi Reyez Age: 57 Gender: F : 1965 Exam Date: 02/28/2023 14:14 Ordering Phys: Darrick Barksdale MD Technologist: Humberto Diego Exam Location: [facility] Indication: short of breath BP: 86 / 60 HR: 106 Rhythm: Sinus Technical Quality: Adequate MEASUREMENTS (Male / Female) Normal Values 2D ECHO LV Diastolic Diameter PLAX 3.5 cm 4.2 - 5.9 / 3.9 - 5.3 cm LV Systolic Diameter PLAX 2.3 cm IVS Diastolic Thickness 1.0 cm 0.6 - 1.0 / 0.6 - 0.9 cm IVS Systolic Thickness 1.3 cm LVPW Diastolic Thickness 1.0 cm 0.6 - 1.0 / 0.6 - 0.9 cm LVPW Systolic Thickness 1.4 cm LVOT Diameter 2.0 cm LV Ejection Fraction 2D Teich 67.1 % LV Ejection Fraction MOD 2C 59.7 % LV Ejection Fraction 2C AL 60.4 % LA Diameter 3.5 cm IVC Diameter 1.1 cm M-MODE Aortic Annulus Diameter 2.6 cm LA Ao Ratio MM 1.4 MV E Point Septal Separation 1.0 cm DOPPLER AV Peak Velocity 108.0 cm/s LVOT Peak Velocity 93.0 cm/s AV Area Cont Eq vti 2.5 cm squared AV Area Cont Eq pk 2.8 cm squared MV Area PHT 5.0 cm squared Mitral E to A Ratio 1.0 MV E' Velocity 47.0 cm/s Mitral E to MV E' Ratio 8.0 Mitral E to LV E' Lateral Ratio 7.5 Mitral E to LV E' Septal Ratio 8.7 TR Peak Velocity 118.3 cm/s TR Peak Gradient 5.6 mmHg TV Peak E Velocity 93.0 cm/s Right Atrial Pressure 3.0 mmHg Pulmonary Artery Systolic Pressu 8.6 mmHg RV Acceleration Time 0.2 s FINDINGS Left Ventricle Left ventricle is normal in size. LV systolic function is normal with EF of 55 to 60%. No regional wall motion abnormalities are seen. Right Ventricle Normal in size and function Right Atrium Normal in size Left Atrium Normal in size Mitral Valve Structurally normal mitral valve. Mild mitral regurgitation. Aortic Valve Grossly normal. No significant stenosis or regurgitation seen. Tricuspid Valve Not well-visualized. Mild tricuspid regurgitation. Insufficient TR jet to calculate RVSP Pulmonic Valve Not well-visualized Pericardium Normal Aorta Normal in size IVC Appears to be normal CONCLUSIONS LV systolic function is normal with EF of 55 to 60%. Valvular structures are not well-visualized secondary to poor ultrasonic windows. Mild mitral regurgitation Mild tricuspid regurgitation No comparison studies are available Leland Wu MD (Electronically Signed) Final Date: 28 February 2023 15:27 S
[2023-02-28] MEDS: pantoprazole DR 40 mg Tablet PO ×2 (08:08→17:18)
[2023-02-28] MEDS: ALPRAZolam 0.5 mg Tablet 0.25 MG PO (08:08)
[2023-02-28] MEDS: acetaminophen 325 mg Tablet 650 MG PO (08:09)
[2023-02-28 08:53] LABS: Lactic Acid level (Lactate) 2.8 mmol/L (0.5-2.2)
--- NOTE | 2023-02-28 09:17 | PC.NURSE ---
upon morning assessment, patient has coarse crackles to bilateral upper lobes, lower lobes are coarse sounding. Patient has a non productive persiostent cough. Nurse alerted Dr peña, no new orders received.
[2023-02-28 09:36] LABS: ABG PCO2 26.3 mmHg (35-45); ABG PH Result 7.41 (7.35-7.45); Alveolar-Arterial Oxygen Gradi 5.4 mmHg (5-10); Arterial Blood Gas Hematocrit 34.1 % (37-47); Base Excess ABG -6.8 mmol/L (-2.0-2.0); Blood Gas Allen Test Pos; Blood Gas Operator Identificat GD; Blood Gas Sample Site Radial, right; Blood Gas Sample Type Arterial; Carboxyhemoglobin 0.6 %THgb (0.4-20.1); HCO3 ABG 16.6 mmol/L (22-26); HGB O2 Sat 94.7 % (95-100); Methemoglobin 0.3 % (0.4-1.5); Oxygen Device NC; Oxygen Saturation ABG 95.6; PO2 ABG 74.7 mmHg (80.0-100.0); Potassium Level - ABG 3.3 mmol/L (3.5-5.0); Total Hemoglobin 11.1 g/dL (12-16)
--- NOTE | 2023-02-28 09:58 | PC.PHAR ---
[facility] HAS NOT FILLED THERE RECENTLY. EXT MED LIST SHOWS ALPRAZOLAM 0.5 MG EVERY 8 HOURS FOR ANXIETY 02/16/23 30DS
[2023-02-28] MEDS: morphine 4 mg/mL SDV 1 mL 2 MG IVP ×2 (10:14→17:15)
[2023-02-28 10:15] LABS: Iron 6 ug/dL (37-145); Percent Saturation 2.5 % (20-50); Thyroid Stimulating Hormone 1.02 uIU/mL (0.27-4.20); Total Iron Binding Capacity 235 mcg/dl; Unsaturated Iron Binding 229 ug/dL (112-347); Vitamin B12 401 pg/mL (232-1245)
[2023-02-28 10:16] LABS: Adenovirus Not Detected (NOT DETECT); Chlamydia Pneumoniae Not Detected (NOT DETECT); Coronavirus 229E,HKU1,NL63,OC4 Not Detected (NOT DETECT); Human Metapneumovirus Not Detected (NOT DETECT); Human Rhinovirus/Enterovirus Not Detected (NOT DETECT); Influenza A Not Detected (NOT DETECT); Influenza A H1 Not Detected (NOT DETECT); Influenza A H1-2009 Not Detected (NOT DETECT); Influenza A H3 Not Detected (NOT DETECT); Influenza B Not Detected (NOT DETECT); Mycoplasma Pneumoniae Not Detected (NOT DETECT); Parainfluenza Virus Type 1 Not Detected (NOT DETECT); Parainfluenza Virus Type 2 Not Detected (NOT DETECT); Parainfluenza Virus Type 3 Not Detected (NOT DETECT); Parainfluenza Virus Type 4 Not Detected (NOT DETECT); Respiratory Syncytial Virus A Not Detected (NOT DETECT); Respiratory Syncytial Virus B Not Detected (NOT DETECT); SARS-COV-2 Not Detected (NOT DETECT)
[2023-02-28] MEDS: methylPREDNISolone sod succ 40 mg/mL INJ IVP ×3 (10:31→22:06)
[2023-02-28] MEDS: vancomycin 1,500 MG/300 ML PIGGYBACK 200 MG IV (10:31)
[2023-02-28] MEDS: potassium chloride ER 20 mEq Tablet 40 MEQ PO (10:31)
[2023-02-28] MEDS: nicotine 14 mg Patch 1 PATCH TRANSDERMA (10:32)
[2023-02-28] MEDS: norepinephrine 4 MG/250 ML BAG 7.5 MG IV (13:03)
[2023-02-28] MEDS: sodium chloride 0.9% 1,000 ML 250 ML IV (13:06)
[2023-02-28] MEDS: ALPRAZolam 0.5 mg Tablet PO ×2 (13:09→22:06)
[2023-02-28] MEDS: acetylcysteine 200 mg/mL SDV 4 mL 100 MG INHALATION ×2 (13:57→19:48)
[2023-02-28] MEDS: levalbuterol 0.63 mg/3 mL Neb INHALATION ×2 (13:57→19:48)
[2023-02-28] MEDS: ipratropium 0.5 mg/2.5 mL Neb INHALATION ×2 (13:57→19:48)
--- NOTE | 2023-02-28 15:06 | P.PN_ITS ---
Subjective 2 Subjective: Admitted overnight. H&P and labs appreciated. Overnight patient required Levophed. Levophed was turned off earlier today morning but had to be restarted today because of low blood pressures. Patient denies any nausea, vomiting, headache. Complaining of mild left-sided chest pain on taking a deep breath. Good urine output since admission. Currently on 4 of Levophed. Switched over to heated high flow for increased work of breathing. Vitals/I&O/Wt Last Vital Signs Temp 99.6 F 02/28/23 12:00 Pulse 106 H 02/28/23 14:07 Resp 28 H 02/28/23 13:58 BP 88/59 02/28/23 05:45 Pulse Ox 94 02/28/23 13:58 O2 Del Method Heated High Flow 02/28/23 13:58 O2 Flow Rate 40 02/28/23 13:58 FiO2 30 02/28/23 13:58 02/28/23 02/28/23 02/28/23 06:59 14:59 22:59 Intake Total 140.874 / 2190.874 3380.25 / 3380.25 Output Total 2150 / 2150 Balance -2009.126 / 40.874 3380.25 / 3380.25 Weight last 48 hrs Weight 88.451 kg Weight 88.451 kg Weight 79.379 kg Physical Exam 2 Narrative: General: No acute distress, AO x3, sick appearing, diaphoretic HEENT: PERRLA, pupils bilaterally equal and reactive Chest: Normal vesicular breath sounds, coarse crackles present in left middle and upper zone with diffuse rhonchi, equal good air entry bilaterally CVS: S1-S2 regular, no murmurs, no tachycardia, no gallops, no rubs Abdomen: Soft, nontender, no organomegaly, bowel sounds present Neuro: No focal deficits, no facial deformity, AO x3, power 5/5 in all limbs Urinary Catheter Management: Doll: Cath Placed During This Visit: yes Reason for Continuing Indwelling Catheter: Accurate Measurement of Urinary Output in Critically Ill Patients Urinary Catheter Date of Insertion: 02/27/23 Urinary Catheter Time of Insertion: 23:15 Data 02/28/23 03:06 02/28/23 03:06 Micro: Microbiology 02/27/23 23:36 Legionella Urinary Antigen - Final Urine,Voided Bacterial Antigens - Final A&P Assessment and plan (1) Septic shock: Septic shock, as evidenced by leukocytosis 25,000, sinus tachycardia at 120, tachypnea with current respiratory rate between 23-30, signs of endorgan failure by way of acute kidney injury, acute hypoxia, elevated lactate at 4.6. Received sepsis fluid bolus on admission yesterday. Cheetah examination done again shows patient is fluid responsive. Will give 1 L fluid bolus. Continue with IV fluids at 100 cc/h afterwards. Levophed keeping mean artery pressure between 65 and 70. Continue with vancomycin, Zosyn, azithromycin for now. Overnight patient did not receive vancomycin due to pharmacy orders. Follow-up blood culture. Respiratory viral panel negative, sputum culture pending. Urine Legionella, bacterial antigen pending. (2) Community acquired pneumonia: CT findings noted with left upper to middle lobe consolidation versus mass. Will consult pulmonology once available. Antibiotics as above. Ipratropium, Xopenex every 6 hour, Pulmicort twice daily. Mucomyst every 6 hours. Aggressive pulmonary toilet with incentive spirometry and flutter valve. MRSA swab pending. Qualifiers: Laterality: left Lung location: upper lobe of lung Qualified Code(s): J18.9 - Pneumonia, unspecified organism (3) Acute hypoxemic respiratory failure: As a result of community-acquired pneumonia Supplemental O2 to keep saturation above 92%. Nebulization treatment as above. Start on Solu-Medrol 40 mg every 6 hourly for now. (4) Acute kidney injury: Likely as a result of septic shock, ATN. Resolving. Good urine output. Medical reconciliation done for nephrotoxic drugs. Strict input output charting, daily weights. Replete potassium. Repeat BMP in AM. Continue with Doll catheterization. (5) Hypomagnesemia: Likely dehydration, replete IV (6) Hypokalemia: Likely dehydration, replete IV (7) Hyponatremia: Likely dehydration, normal saline, repeat with a.m. labs Plan Anxiety: Takes Xanax 1 mg twice daily at home. Restart Xanax 0.5 every 8 hourly. Amphetamine positive: Blood culture awaited. Check HIV. Watch for withdrawals. DVT prophylaxis: Patient is at high risk of DVT. For now start on heparin 5000 every 12 hourly expectantly. Continue Protonix 40 mg twice daily. Add Carafate. History of GI bleed 2 years ago, she was recently planned to undergo endoscopic evaluation. This appears to be surveillance per patient description. Appreciate CT abdomen pelvis. Full code. Clear liquid diet Attestations 2 Medical Necessity Statement*: Requires further hospitalization for management of septic shock in setting of community-acquired pneumonia with hypoxic respiratory failure Critical Care Time: The high probability of a clinically significant, sudden or life threatening deterioration of the patient's cardiac, respiratory, renal, ID system(s) required my full and direct attention, intervention and personal management. The critical care time is as shown. This time is in addition to time spent performing any reported procedures but includes the following: [x] Data and vital sign review and interpretation [x] Patient assessment, examination and intervention [x] Documentation [x] Medication orders and management Coding Level of Care Code Critical Care >/= 30 minutes Critical care time (in minutes): 70 The high probability of a clinically significant, sudden or life threatening deterioration, as referenced in this documentation, required my full and direct attention, intervention and personal management. The critical care time shown is in addition to time spent performing any reported separately billable procedures and includes the following: [x] Data and vital sign review and interpretation [x ] Patient assessment, examination and intervention [x] Medication orders and management [x] Patient/Family updates as able [x] Care Coordination and Documentation. Other Coding Information This patient has a high probability of clinically significant, sudden or life threatening deterioration of the patient's (neurological/pulmonary/cardiac/renal/ID/endocrine) systems required my full, direct attention, the highest level of physician preparedness for urgent intervention and personal management. I managed/supervised life or organ supporting interventions that required frequent physician assessment. I devoted my full attention in the ICU to the direct care of this patient for the period of time indicated above. Time I spent with family or surrogate(s) is included only if the patient was incapable of providing necessary information or participating in decision making. This time includes the following services provided: Telemetry review Hemodynamic interpretation, assessment and management Review and interpretation of CXR Review and interpretation of lab values Review and interpretation of microbiologic data and culture results Review of medications and administration Review and interpretation of Nutrition requirements and management Discussion of management with other consultants and services Clinical update to family members Diagnoses Septic shock A41.9; R65.21 Community acquired pneumonia J18.9 Laterality: left Lung location: upper lobe of lung Acute hypoxemic respiratory failure J96.01 Acute kidney injury N17.9 Hypomagnesemia E83.42 Hypokalemia E87.6 Hyponatremia E87.1
--- NOTE | 2023-02-28 18:01 | PC.NURSE ---
Shift summary: Uneventful shift. Patient rested in bed for most of the day, but got up to a chair for dinner. Breath sounds have improved since this morning, initially coarse crackles were audible form the doorway but now she just has coarse breath sounds with auscultation. Patient's work of breathing has also improved and anxiety under control after administration of scheduled xanaz and occaisonal prn morphine. Total urine output has been 1600mL for shift.
[2023-02-28] MEDS: budesonide 0.5 mg/2 mL Neb INHALATION (19:48)
[2023-03-01] VITALS (44 sets, daily range): BP systolic 84–115; BP diastolic 54–84; PULSE 77–118; RESP 13–38; TEMP 36.6–37.1; O2SAT 87–100
[2023-03-01] MEDS: ipratropium 0.5 mg/2.5 mL Neb INHALATION ×4 (01:58→19:49)
[2023-03-01] MEDS: acetylcysteine 200 mg/mL SDV 4 mL 100 MG INHALATION ×3 (01:58→13:26)
[2023-03-01] MEDS: levalbuterol 0.63 mg/3 mL Neb INHALATION ×4 (01:58→19:49)
[2023-03-01] MEDS: sodium chloride 0.9% 1,000 ML 75 ML IV ×2 (02:16→19:32)
[2023-03-01] MEDS: piperacillin-tazobactam 3.375 GM in sodium chloride 0.9% (plus) 50 ML IV ×2 (03:42→10:24)
[2023-03-01] MEDS: methylPREDNISolone sod succ 40 mg/mL INJ IVP ×2 (03:42→09:34)
[2023-03-01] MEDS: ALPRAZolam 0.5 mg Tablet PO ×3 (05:51→21:57)
[2023-03-01 06:03] LABS: Basophils # 0.2 10^3/uL (0.0-0.1); Basophils % 0.9 %; Eosinophils # 0.3 10^3/uL (0.0-0.8); Eosinophils % 1.3 %; Hematocrit 29.2 % (36-47); Lymphocytes % 4.6 %; Mean Corpuscular HGB Conc 34.2 g/dL (30-55); Mean Corpuscular Hemoglobin 30.9 pg (27-33); Mean Corpuscular Volume 90.1 fl (85-98); Mean Platelet Volume 9.5 fL (7.4-10.4); Monocytes # 0.5 10^3/uL (0.2-0.9); Monocytes % 2.3 %; Neutrophils # 18.71 10^3/uL (1.8-7.7); Neutrophils % 89.7 %; Nucleated Red Blood Cells % 0 %; Platelet Count 281 10^3/cmm (157-399); Red Blood Count 3.24 10^6/uL (3.85-5.65); Red Cell Distribution Width 13.4 % (12.1-15.1); White Blood Count 20.86 10^3/uL (3.29-11.43)
[2023-03-01 06:25] LABS: Alanine Aminotransferase < 5 U/L (0-33); Albumin Level 2.6 g/dL (3.5-5.2); Alkaline Phosphatase 118 U/L (35-105); Anion Gap 16.4 (5-19); Aspartate Amino Transferase 11 U/L (0-32); Blood Urea Nitrogen 16 mg/dL (6-20); Carbon Dioxide 15 mmol/L (22-29); Chloride 108 mmol/L (98-107); Globulin 3.3 g/dL (1.3-4.6); Glomerular Filtration Rate 86.6 mL/min (90-130); Glucose 129 mg/dL (65-115); Osmolality Calculated 285 mOsm/kg (285-295); Potassium 3.4 mmol/L (3.5-5.1); Sodium 136 mmol/L (136-145); Total Bilirubin 0.2 mg/dL (0.15-1.2); Total Protein 5.9 g/dL (6.6-8.7)
[2023-03-01 06:37] LABS: Cholesterol 115 mg/dL (0-200); HDL Cholesterol 23 mg/dL (60-100); LDL Cholesterol Calculated 57 mg/dL (50-129); Magnesium 2.3 mg/dL (1.7-2.3); Phosphorus 2.4 mg/dL (2.5-4.5); Triglycerides 173 mg/dL (0-150); VLDL Cholestrol Calculation 35 mg/dL (0-30)
[2023-03-01 06:38] LABS: Folate Level 9.2 ng/mL (4.8-37.3)
[2023-03-01 06:40] LABS: Slide Review Slide Review Perform
[2023-03-01 06:42] LABS: Estmated Average Glucose 108; Hemoglobin A1C 5.4 % (4.0-6.0)
[2023-03-01] MEDS: budesonide 0.5 mg/2 mL Neb INHALATION ×2 (08:08→19:49)
[2023-03-01] MEDS: vancomycin 1,500 MG/300 ML PIGGYBACK 200 MG IV (09:33)
[2023-03-01] MEDS: pantoprazole DR 40 mg Tablet PO ×2 (09:34→17:49)
[2023-03-01] MEDS: nicotine 14 mg Patch 1 PATCH TRANSDERMA (09:34)
[2023-03-01] MEDS: meropenem 1,000 MG in sodium chloride 0.9% (plus) 50 ML 100 MG IV ×2 (10:52→17:49)
[2023-03-01 12:15] LABS: Methicillin-Resist S.aureu PCR NOT DETECTED (NOT DETECTED)
--- NOTE | 2023-03-01 13:03 | P.PN_ITS ---
Subjective 2 Subjective: No acute events overnight. Patient was weaned off Levophed yesterday evening. The mean artery pressure have maintained well. Today on examination patient sleeping during examination but wakes up to verbal stimulus. Urine output documented up from 2.5 L in last [address] have [address] exam done yesterday which showed patient to be fluid responsive after which she received 1 L bolus. Patient had 1 episode of choking on liquid diet in the morning associated with bouts of cough. Remains on heated high flow 30% 40 L. Saturating over 95%. Vitals/I&O/Wt Last Vital Signs Temp 98.7 F 03/01/23 00:00 Pulse 96 03/01/23 11:13 Resp 22 H 03/01/23 11:13 BP 115/77 03/01/23 10:00 Pulse Ox 96 03/01/23 11:13 O2 Del Method Heated High Flow 03/01/23 08:10 O2 Flow Rate 40 03/01/23 11:13 FiO2 30 03/01/23 11:13 02/28/23 03/01/23 03/01/23 22:59 06:59 14:59 Intake Total 1235.875 / 4616.125 960 / 5576.125 50 / 50 Output Total 1600 / 1600 975 / 2575 Balance -364.125 / 3016.125 -15 / 3001.125 50 / 50 Weight last 48 hrs Weight 88.451 kg Weight 88.451 kg Weight 88.451 kg Weight 79.379 kg Physical Exam 2 Narrative: General: No acute distress, AO x3, sick appearing, improving from yesterday HEENT: PERRLA, pupils bilaterally equal and reactive Chest: Normal vesicular breath sounds, coarse crackles present in left middle and upper zone with diffuse rhonchi, equal good air entry bilaterally CVS: S1-S2 regular, no murmurs, no tachycardia, no gallops, no rubs Abdomen: Soft, nontender, no organomegaly, bowel sounds present Neuro: No focal deficits, no facial deformity, AO x3, power 5/5 in all limbs Urinary Catheter Management: Doll: Cath Placed During This Visit: yes Reason for Continuing Indwelling Catheter: Accurate Measurement of Urinary Output in Critically Ill Patients Urinary Catheter Date of Insertion: 02/27/23 Urinary Catheter Time of Insertion: 23:15 Data 03/01/23 04:55 03/01/23 04:55 Micro: Microbiology 02/28/23 17:40 Gram Stain - Final Sputum - Expectorated Sputum 02/28/23 17:30 Occult Blood (FIT) - Final Stool - Stool Aspirate 02/27/23 23:36 Legionella Urinary Antigen - Final Urine,Voided Bacterial Antigens - Final A&P Assessment and plan (1) Septic shock: Septic shock, as evidenced by leukocytosis 25,000, sinus tachycardia at 120, tachypnea with current respiratory rate between 23-30, signs of endorgan failure by way of acute kidney injury, acute hypoxia, elevated lactate at 4.6. Received sepsis fluid bolus on admission yesterday. Cheetah examination done again shows patient is fluid responsive. Will give 1 L fluid bolus. Continue with IV fluids at 100 cc/h afterwards. Levophed keeping mean artery pressure between 65 and 70. Continue with vancomycin, Zosyn, azithromycin for now. Overnight patient did not receive vancomycin due to pharmacy orders. Follow-up blood culture. Respiratory viral panel negative, sputum culture pending. Urine Legionella, bacterial antigen pending. (2) Community acquired pneumonia: CT findings noted with left upper to middle lobe consolidation versus mass. Will consult pulmonology once available. Antibiotics as above. Ipratropium, Xopenex every 6 hour, Pulmicort twice daily. Mucomyst every 6 hours. Aggressive pulmonary toilet with incentive spirometry and flutter valve. MRSA swab pending. Qualifiers: Laterality: left Lung location: upper lobe of lung Qualified Code(s): J18.9 - Pneumonia, unspecified organism (3) Acute hypoxemic respiratory failure: As a result of community-acquired pneumonia Supplemental O2 to keep saturation above 92%. Nebulization treatment as above. Start on Solu-Medrol 40 mg every 6 hourly for now. (4) Acute kidney injury: Likely as a result of septic shock, ATN. Resolving. Good urine output. Medical reconciliation done for nephrotoxic drugs. Strict input output charting, daily weights. Replete potassium. Repeat BMP in AM. Continue with Doll catheterization. (5) Hypomagnesemia: Likely dehydration, replete IV (6) Hypokalemia: Likely dehydration, replete IV (7) Hyponatremia: Likely dehydration, normal saline, repeat with a.m. labs Plan Anxiety: Takes Xanax 1 mg twice daily at home. Restart Xanax 0.5 every 8 hourly. Amphetamine positive: Blood culture awaited. Check HIV. Watch for withdrawals. DVT prophylaxis: Patient is at high risk of DVT. For now start on heparin 5000 every 12 hourly expectantly. Continue Protonix 40 mg twice daily. Add Carafate. History of GI bleed 2 years ago, she was recently planned to undergo endoscopic evaluation. This appears to be surveillance per patient description. Appreciate CT abdomen pelvis. Full code. NPO. Plan for the day: Continue with IV fluids at 75 cc/h. Monitor urine output. Continue with current IV antibiotics including vancomycin. Patient continues to have persistent leukocytosis. For now we will switch from Zosyn to meropenem. Follow-up blood culture. Sputum culture taken today. Will await results. Keep mean artery pressure 65. Continue with nebulization treatment and Mucomyst. Wean Solu-Medrol to 40 mg IV every 12 hourly. Out of bed to chair. Continue with Xanax 0.5 every 8 hourly for now for anxiety. N.p.o. for now. Advance as per speech evaluation. Wean oxygen supplementation keeping saturation 90%. Can try for regular nasal cannula today. Continue with aggressive pulmonary toilet KITA resolved. Potassium down to 3.4 today. Replace with 80 mg of hold. Start on IV iron supplementation. Attestations 2 Medical Necessity Statement*: Requires further hospitalization for management of severe sepsis in setting of community-acquired pneumonia with left upper lobe mass versus postobstructive pneumonia leading to hypoxic respiratory failure, resolving KITA Diagnoses Septic shock A41.9; R65.21 Community acquired pneumonia J18.9 Laterality: left Lung location: upper lobe of lung Acute hypoxemic respiratory failure J96.01 Acute kidney injury N17.9 Hypomagnesemia E83.42 Hypokalemia E87.6 Hyponatremia E87.1
[2023-03-01] MEDS: iron sucrose 200 MG in sodium chloride 0.9% (100 ml) 100 ML 220 MG IV (14:37)
--- NOTE | 2023-03-01 21:26 | PC.NURSE ---
Patient sputum culture noted to reveal rare yeast on stain. Hospitalist notified, no new orders received. Culture still pending. Patient continues to have persistent cough, fevers resolved.
[2023-03-01] MEDS: cetylpyridinium Lozenge 1 EACH MUCOUS MEM (23:03)
[2023-03-01] MEDS: azithromycin 500 MG in sodium chloride 0.9% 250 ML 250 MG IV (23:54)
[2023-03-02] VITALS (29 sets, daily range): BP systolic 85–111; BP diastolic 63–81; PULSE 80–110; RESP 10–30; TEMP 36.2–36.8; O2SAT 92–100
[2023-03-02] MEDS: cetylpyridinium Lozenge 1 EACH MUCOUS MEM ×2 (00:59→03:31)
[2023-03-02] MEDS: methylPREDNISolone sod succ 40 mg/mL INJ IVP ×2 (00:59→14:31)
[2023-03-02] MEDS: ipratropium 0.5 mg/2.5 mL Neb INHALATION ×4 (03:04→19:59)
[2023-03-02] MEDS: levalbuterol 0.63 mg/3 mL Neb INHALATION ×4 (03:05→19:59)
[2023-03-02] MEDS: meropenem 1,000 MG in sodium chloride 0.9% (plus) 50 ML 100 MG IV ×3 (03:24→17:57)
[2023-03-02 03:43] LABS: Basophils # 0.2 10^3/uL (0.0-0.1); Basophils % 0.6 %; Eosinophils # 0.2 10^3/uL (0.0-0.8); Eosinophils % 0.6 %; Hematocrit 30.6 % (36-47); Lymphocytes # 1.2 10^3/uL (0.8-4.8); Lymphocytes % 3.7 %; Mean Corpuscular Hemoglobin 30.1 pg (27-33); Mean Corpuscular Volume 91.3 fl (85-98); Monocytes # 1.6 10^3/uL (0.2-0.9); Neutrophils # 27.59 10^3/uL (1.8-7.7); Neutrophils % 88.1 %; Nucleated Red Blood Cells % 0.1 %; Platelet Count 340 10^3/cmm (157-399); Red Blood Count 3.35 10^6/uL (3.85-5.65); Red Cell Distribution Width 13.7 % (12.1-15.1)
[2023-03-02 03:57] LABS: White Blood Count 31.31 10^3/uL (3.29-11.43)
[2023-03-02] MEDS: acetaminophen-codeine 300-30mg Tablet 1 TAB PO (03:57)
[2023-03-02 04:05] LABS: Alanine Aminotransferase 6 U/L (0-33); Albumin Level 2.6 g/dL (3.5-5.2); Alkaline Phosphatase 81 U/L (35-105); Anion Gap 16.9 (5-19); Aspartate Amino Transferase 9 U/L (0-32); Blood Urea Nitrogen 18 mg/dL (6-20); Calcium 8.5 mg/dL (8.5-10.5); Carbon Dioxide 17 mmol/L (22-29); Chloride 111 mmol/L (98-107); Globulin 3.4 g/dL (1.3-4.6); Glomerular Filtration Rate 127.6 mL/min (90-130); Glucose 120 mg/dL (65-115); Osmolality Calculated 295 mOsm/kg (285-295); Potassium 3.9 mmol/L (3.5-5.1); Sodium 141 mmol/L (136-145); Total Bilirubin 0.2 mg/dL (0.15-1.2)
--- NOTE | 2023-03-02 04:05 | XRR_ITS ---
PROCEDURE INFORMATION: Exam: XR Chest Exam date and time: 03/02/2023 5:07 AM Age: 57 years old Clinical indication: Abnormal findings; Abnormal diagnostic tests; Abnormal ekg; Cough; Additional info: Increased coughing and wbc count TECHNIQUE: Imaging protocol: Radiologic exam of the chest. Views: 1 view. COMPARISON: CT chest con [id number] 02/27/2023 6:35 PM FINDINGS: Lungs: In addition to the extensive consolidative pneumonia in the left upper lobe in area of consolidation in the left lower lobe is developing. Pleural spaces: Unremarkable. No pleural effusion. No pneumothorax. Heart/Mediastinum: Heart, mediastinum, and right lung are normal. Bones/joints: Unremarkable. XR/XR chest 1V portable [id number] IMPRESSION: Extensive pneumonia.
[2023-03-02 04:06] LABS: Magnesium 2.5 mg/dL (1.7-2.3); Phosphorus 2.1 mg/dL (2.5-4.5)
--- NOTE | 2023-03-02 05:00 | PC.NURSE ---
Patient's cough persisted throughout shift with increasing frequency. Orders for Cepacol received and warm water rinses provided. Patient's cough did not reside and order for codeine received. Cough frequency did seem to improve with codeine.
[2023-03-02] MEDS: ALPRAZolam 0.5 mg Tablet PO ×3 (05:44→21:01)
--- NOTE | 2023-03-02 05:55 | PC.NURSE ---
Stat chest Xray ordered for patient due to increased WBC and coughing. Unilateral white out of left lung field noted and hospitalist notified. left lung is diminished with crackles. O2 requirements have not increased overnight.
--- NOTE | 2023-03-02 07:15 | CTR_ITS ---
PROCEDURE INFORMATION: Exam: CT Chest Without Contrast; Diagnostic Exam date and time: 03/02/2023 10:51 AM Age: 57 years old Clinical indication: Shortness of breath; Patient HX: Worsening consolidation in left lung, SOB; Additional info: Worsening consolidation left lung, worsening consolidation left lung- much plugging vs interval TECHNIQUE: Imaging protocol: Diagnostic computed tomography of the chest without contrast. Radiation optimization: All CT scans at this facility use at least one of these dose optimization techniques: automated exposure control; mA and/or kV adjustment per patient size (includes targeted exams where dose is matched to clinical indication); or iterative reconstruction. REPORTING DATA: Count of CT and Cardiac NM exams in prior 12 months: This patient has received 2 known CTs and 0 known cardiac nuclear medicine studies in the 12 months prior to the current study. COMPARISON: CT chest [facility] [id number] 02/27/2023 6:35 PM RADIATION DOSE METRICS: Total DLP (mGy-cm): 540.4 FINDINGS: Lungs: Severe left upper lobe consolidative pneumonia with almost the entire left upper lobe now involved, the disease has progressed since the prior study. Dependent atelectasis in the left lower lobe. A mild infiltrate could also be present there. Pleural spaces: New a moderate left pleural effusion. Heart: Unremarkable. No cardiomegaly. No pericardial effusion. Coronary arteries: No coronary artery calcifications. Lymph nodes: Slightly increasing central adenopathy, likely reactive. Vasculature: Unremarkable. No aortic aneurysm. Bones/joints: Unremarkable. No acute fracture. Soft tissues: Unremarkable. CT/CT chest con [id number] IMPRESSION: 1. Progressive left upper lobe consolidative pneumonia. 2. Increasing left pleural effusion. 3. Left lower lobe atelectasis, an early infiltrate could also be present there.
[2023-03-02] MEDS: acetylcysteine 200 mg/mL SDV 4 mL 100 MG INHALATION (07:51)
[2023-03-02] MEDS: budesonide 0.5 mg/2 mL Neb INHALATION ×2 (07:51→19:59)
[2023-03-02] MEDS: vancomycin 1,500 MG/300 ML PIGGYBACK 200 MG IV (08:02)
[2023-03-02] MEDS: pantoprazole DR 40 mg Tablet PO ×2 (08:05→17:52)
[2023-03-02] MEDS: nicotine 14 mg Patch 1 PATCH TRANSDERMA (08:05)
--- NOTE | 2023-03-02 08:46 | P.CONIM_ITS ---
Providers/Reason For Consult 2 Consulting Physician/Specialty*: [facility]divia [facility] Reason for Consult*: Progressive left upper lobe consolidative pneumonia. Requesting Physician: Lexus Navarro MD Attending Physician: Darrick Barksdale MD Primary Care Provider: Conrado Wills History of Present Illness History of Present Illness Brandi Reyez is a 57 year old female admitted to hospital 02/27/2023 with chief complaint of worsening chest discomfort and dyspnea on exertion for 4 to 5 days. Reported that she was in her usual state of health 5 days ago when she developed runny nose and flulike symptoms which has gradually progressed over 4 to 5 days with dyspnea with usual activities. She required 4 L oxygen-previously she was not on any oxygen. Patient is a chronic smoker. Never diagnosed with asthma or COPD. On admission she was very dehydrated. She had past history significant for GI bleeding which needed cauterization to control. During admission she also reported having double pneumonia. Admission CT chest showed large left-sided masslike consolidation with loss of air bronchograms. She was in shock during admission-transferred to ICU and started on Levophed infusion and started on vancomycin, Zosyn and azithromycin and cultures were sent. Gradually she was weaned off pressors. Her urine output improved. Today morning hospitalist called me for bronchoscopic evaluation of her airways and left upper lobe pneumonia given increasing FiO2 requirements-and worsening leukocytosis .. Chest x-ray showed extensive consolidation of left upper lobe pneumonia and lobe and consolidation in left lower lobe. So far cultures have been pending. Patient seen at bedside -She is on 4 L oxygen Agree for bronchoscopic evaluation Her antibiotics were switched from Zosyn to meropenem Medications/Allergies Home Medications Medication Instructions Recorded Confirmed Last Taken Type No Known Home Medications 02/28/23 02/28/23 Unknown History Allergies Allergy/AdvReac Type Severity Reaction Status Date / Time No Known Allergies Allergy Verified 03/18/20 12:41 Current Medications Generic Name Dose Route Start Last Admin Trade Name Freq PRN Reason Stop Dose Admin Acetaminophen 650 mg 02/27/23 22:07 02/28/23 08:09 Acetaminophen 325 Mg Tablet PO 650 mg Q6H PRN Administration Mild/Mod Pain Or Temp >/= 101 Acetaminophen/Codeine Phosphate 1 tab 03/02/23 03:29 03/02/23 03:57 Acetaminophen-Codeine 300-30mg Tablet PO 1 tab Q8H PRN Administration MODERATE PAIN Acetylcysteine 100 mg 02/28/23 09:30 03/02/23 07:51 Acetylcysteine 200 Mg/Ml Sdv 4 Ml INHALATION 100 mg Q6H.RESP IRMA Administration Albuterol/Ipratropium 3 ml 02/27/23 20:04 02/28/23 09:07 Ipratropium-Albuterol 3 Ml Neb INHALATION 3 ml Q6H PRN Administration SHORTNESS OF BREATH Alprazolam 0.5 mg 02/28/23 14:00 03/02/23 05:44 Alprazolam 0.5 Mg Tablet PO 0.5 mg Q8H IRMA Administration Benzocaine 1 each 03/01/23 22:38 03/02/23 03:31 Cetylpyridinium Lozenge MUCOUS MEM 1 each Q2H PRN Administration SORE THROAT Budesonide 0.5 mg 02/28/23 09:25 03/02/23 07:51 Budesonide 0.5 Mg/2 Ml Neb INHALATION 0.5 mg BID.RESPIRATORY IRMA Administration norepinephrine 4 mg in 250 mls @ 0 mls/hr 02/27/23 22:00 02/28/23 20:00 Levophed IV 0 mcg/min .Q0M IRMA 0 mls/hr Titration Protocol Per Protocol Sodium Chloride 1,000 mls @ 75 mls/hr 02/27/23 22:15 03/02/23 07:04 Sodium Chloride 0.9% IV Not Given .[id number] IRMA Azithromycin 500 mg/ Sodium 250 mls @ 250 mls/hr 02/28/23 00:00 03/01/23 23:54 Chloride IV 250 mls/hr Q24H IRMA Administration Protocol Vancomycin/PEG/NADA/Lysine/Water 1,500 mg in 300 mls @ 200 mls/hr 02/28/23 08:45 03/02/23 08:02 Vancocin IV 200 mls/hr Q24H IRMA Administration Meropenem 1,000 mg/ Sodium 50 mls @ 100 mls/hr 03/01/23 10:45 03/02/23 03:24 Chloride IV 100 mls/hr Q8H IRMA Administration Protocol Iron Sucrose 200 mg/ Sodium 110 mls @ 220 mls/hr 03/01/23 13:15 03/01/23 14:37 Chloride IV 03/05/23 13:44 220 mls/hr Q24H IRMA Administration Ipratropium [place] 0.5 mg 02/28/23 14:00 03/02/23 07:51 Ipratropium 0.5 Mg/2.5 Ml Neb INHALATION 0.5 mg Q6H.RESP IRMA Administration Levalbuterol HCl 0.63 mg 02/28/23 14:00 03/02/23 07:51 Levalbuterol 0.63 Mg/3 Ml Neb INHALATION 0.63 mg Q6H.RESP IRMA Administration Methylprednisolone Sodium Succinate 40 mg 03/01/23 13:15 03/02/23 00:59 Methylprednisolone Sod Succ 40 Mg/Ml Inj IVP 40 mg Q12H IRMA Administration Morphine Sulfate 2 mg 02/28/23 10:00 02/28/23 17:15 Morphine 4 Mg/Ml Sdv 1 Ml IVP 2 mg Q4H PRN Administration SEVERE PAIN Nicotine 1 patch 02/28/23 10:15 03/02/23 08:05 Nicotine 14 Mg Patch TRANSDERMA 1 patch DAILY IRMA Administration Pantoprazole Sodium 40 mg 02/28/23 09:00 03/02/23 08:[address] 40 Mg Tablet PO 40 mg BID IRMA Administration PFSH Acute 2 PFSH: Medical History History of GI bleed Social History Smoking and tobacco/nicotine status: current every day tobacco/nicotine user cigarettes Alcohol intake: current Alcohol intake frequency: few times a month Substance/Drug Use: never Vitals/I&O/Wt Last Vital Signs Temp 97.6 F 03/02/23 04:53 Pulse 89 03/02/23 08:06 Resp 19 H 03/02/23 08:00 BP 98/65 03/02/23 08:00 Pulse Ox 98 03/02/23 08:00 O2 Del Method Nasal Cannula 03/02/23 08:00 O2 Flow Rate 6 03/01/23 20:00 FiO2 4 03/02/23 08:00 03/01/23 03/02/23 03/02/23 22:59 06:59 14:59 Intake Total 1580 / 1980 1440 / 3420 Output Total 1500 / 1500 1450 / 2950 Balance 80 / 480 -10 / 470 Weight last 48 hrs Weight 204 lb Weight 195 lb Physical Exam 2 Narrative: General: alert, NAD HEENT: conj clear, EOMI, PERRL, mmm, Neck: supple, no meningismus Heme: no cervical LAP Respiratory: Inspection: No visible deformity of the chest wall Palpation: Trachea is mildly deviated to the right, bilateral symmetric expansion Percussion: Bilateral tympanic percussion note both anterior and posteriorly Auscultation: Reduced breath sounds left upper lung zone Cardiovascular: rrr, nl s1s2, no mrg Abdomen: soft, nt, nd, no r/g, bs+ Extremities: pulses +, no edema, no c/c : no CVA tenderness Skin: intact, no rash MSK: no back or neck pain Neurologic: grossly intact Urinary Catheter Management: Doll: Cath Placed During This Visit: yes Reason for Continuing Indwelling Catheter: Accurate Measurement of Urinary Output in Critically Ill Patients Urinary Catheter Date of Insertion: 02/27/23 Urinary Catheter Time of Insertion: 23:15 Data 03/02/23 03:13 03/02/23 03:13 Other Labs: Radiology Impressions Abdomen/Pelvis CT 02/27/23 22:13 IMPRESSION: 1. No acute findings. 2. Contracted gallbladder with multiple small calcified stones. 3. 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 Chest X-Ray 03/02/23 04:05 IMPRESSION: Extensive pneumonia. Chest CT 03/02/23 07:15 IMPRESSION: 1. Progressive left upper lobe consolidative pneumonia. 2. Increasing left pleural effusion. 3. Left lower lobe atelectasis, an early infiltrate could also be present there. Laboratory Results WBC 31.31 10^3/uL (3.29-11.43) H* 03/02/23 03:13 RBC 3.35 10^6/uL (3.85-5.65) L 03/02/23 03:13 Hgb 10.10 g/dL (11.27-16.99) L 03/02/23 03:13 Hct 30.6 % (36-47) L 03/02/23 03:13 MCV 91.3 fl (85-98) 03/02/23 03:13 MCH 30.1 pg (27-33) 03/02/23 03:13 MCHC 33.0 g/dL (30-55) 03/02/23 03:13 RDW 13.7 % (12.1-15.1) 03/02/23 03:13 Plt Count 340 10^3/cmm (157-399) 03/02/23 03:13 MPV 10.0 fL (7.4-10.4) 03/02/23 03:13 Neut % (Auto) 88.1 % 03/02/23 03:13 Lymph % (Auto) 3.7 % 03/02/23 03:13 [place] % (Auto) 5.0 % 03/02/23 03:13 Eos % (Auto) 0.6 % 03/02/23 03:13 Baso % (Auto) 0.6 % 03/02/23 03:13 Neut # (Auto) 27.59 10^3/uL (1.8-7.7) H 03/02/23 03:13 Lymph # (Auto) 1.2 10^3/uL (0.8-4.8) 03/02/23 03:13 [place] # (Auto) 1.6 10^3/uL (0.2-0.9) H 03/02/23 03:13 Eos # (Auto) 0.2 10^3/uL (0.0-0.8) 03/02/23 03:13 Baso # (Auto) 0.2 10^3/uL (0.0-0.1) H 03/02/23 03:13 Nucleated RBC % (auto) 0.1 % 03/02/23 03:13 Total Counted 100 (0-100) 02/27/23 17:54 Atypical Lymphs % Not Reportable 02/27/23 17:54 Absolute Neutrophils 23.1 10^3/cmm (1.4-6.5) H 02/27/23 17:54 Segmented Neutrophils 84 % 02/27/23 17:54 Abs Segm Neuts (Man) 21.8 10/cmm (1.6-7.1) H 02/27/23 17:54 Band Neutrophils 5.0 % 02/27/23 17:54 Abs Band Neuts (Man) 1.3 10^3/cmm (0.0-1.2) H 02/27/23 17:54 Lymphocytes (Manual) 4 % 02/27/23 17:54 Monocytes (Manual) 1.0 % 02/27/23 17:54 Absolute Monocytes 0.3 10^3/cmm (0.1-0.6) 02/27/23 17:54 Eosinophils (Manual) 0 % 02/27/23 17:54 Absolute Eosinophils 0.0 10^3/cmm (0.0-0.7) 02/27/23 17:54 Basophils (Manual) 0.0 % 02/27/23 17:54 Absolute Basophils 0.0 10^3/cmm (0.0-0.2) 02/27/23 17:54 Nucleated RBCs # 0.0 /100WBC 03/02/23 03:13 Platelet Estimate Normal (Normal) 02/27/23 17:54 Giant Platelets Trace 02/27/23 17:54 Specimen Type Arterial 02/28/23 09:20 Sample Site Radial, right 02/28/23 09:20 ABG pH 7.41 (7.35-7.45) 02/28/23 09:20 ABG pCO2 26.3 mmHg (35-45) L 02/28/23 09:20 ABG pO2 74.7 mmHg (80.0-100.0) L 02/28/23 09:20 ABG HCO3 16.6 mmol/L (22-26) L 02/28/23 09:20 ABG O2 Saturation 95.6 02/28/23 09:20 ABG Base Excess -6.8 mmol/L (-2.0-2.0) L 02/28/23 09:20 Vlad Test Pos 02/28/23 09:20 A-a O2 Gradient 5.4 mmHg (5-10) 02/28/23 09:20 Hematocrit 34.1 % (37-47) L 02/28/23 09:20 Hgb O2 Saturation 94.7 % (95-100) L 02/28/23 09:20 Carboxyhemoglobin 0.6 %THgb (0.4-20.1) 02/28/23 09:20 Methemoglobin 0.3 % (0.4-1.5) L 02/28/23 09:20 Total Hemoglobin 11.1 g/dL (12-16) L 02/28/23 09:20 Sodium 136.0 mmol/L (131-143) 02/28/23 09:20 Potassium 3.3 mmol/L (3.5-5.0) L 02/28/23 09:20 Glucose 119.0 mg/dL (70-115) H 02/28/23 09:20 Ionized Calcium 1.0 mmol/L (1.1-1.4) L 02/28/23 09:20 O2 Delivery Device Nc 02/28/23 09:20 Lead Generation Marketing Manager ID [id number] 02/28/23 09:20 Sodium 141 mmol/L (136-145) 03/02/23 03:13 Potassium 3.9 mmol/L (3.5-5.1) 03/02/23 03:13 Chloride 111 mmol/L (98-107) H 03/02/23 03:13 Carbon Dioxide 17 mmol/L (22-29) L 03/02/23 03:13 Anion Gap 16.9 (5-19) 03/02/23 03:13 BUN 18 mg/dL (6-20) 03/02/23 03:13 Creatinine 0.5 mg/dL (0.5-0.9) 03/02/23 03:13 GFR Calculation 127.6 mL/min (90-130) 03/02/23 03:13 Glucose 120 mg/dL (65-115) H 03/02/23 03:13 Estimat Average Glucose 108 03/01/23 04:55 Hemoglobin A1c 5.4 % (4.0-6.0) 03/01/23 04:55 Calculated Osmolality 295 mOsm/kg (285-295) 03/02/23 03:13 Lactic Acid 3.8 mmol/L (0.5-2.2) H 02/28/23 05:54 Lactic Acid (Sepsis) 2.8 mmol/L (0.5-2.2) H 02/28/23 08:25 Calcium 8.5 mg/dL (8.5-10.5) 03/02/23 03:13 Phosphorus 2.1 mg/dL (2.5-4.5) L 03/02/23 03:13 Magnesium 2.5 mg/dL (1.7-2.3) H 03/02/23 03:13 Iron 6 ug/dL (37-145) L 02/28/23 03:06 TIBC 235 mcg/dl 02/28/23 03:06 % Saturation 2.5 % (20-50) L 02/28/23 03:06 Unsat Iron Binding 229 ug/dL (112-347) 02/28/23 03:06 Total Bilirubin 0.2 mg/dL (0.15-1.2) 03/02/23 03:13 AST 9 U/L (0-32) 03/02/23 03:13 ALT 6 U/L (0-33) 03/02/23 03:13 Alkaline Phosphatase 81 U/L (35-105) 03/02/23 03:13 Troponin T Baseline 38 ng/L (0-10) H 02/27/23 17:54 Troponin T 120 Minute 27.83 ng/L (0-10) H 02/27/23 20:16 Delta Troponin T -10.17 ABS# (0-10) L 02/27/23 20:16 Troponin T Hi Sens 6Hr 31.43 ng/L (0-10) H 02/27/23 23:40 Troponin T Hi Sens 6Hr Delta -6.57 ng/L (0-12) L 02/27/23 23:40 Total Protein 6.0 g/dL (6.6-8.7) L 03/02/23 03:13 Albumin 2.6 g/dL (3.5-5.2) L 03/02/23 03:13 Globulin 3.4 g/dL (1.3-4.6) 03/02/23 03:13 Triglycerides 173 mg/dL (0-150) H 03/01/23 04:55 Cholesterol 115 mg/dL (0-200) 03/01/23 04:55 LDL Cholesterol, Calc 57 mg/dL (50-129) 03/01/23 04:55 Total VLDL Cholesterol 35 mg/dL (0-30) H 03/01/23 04:55 HDL Cholesterol 23 mg/dL (60-100) L 03/01/23 04:55 Cholesterol/HDL Ratio 5.00 mg/dL (0.0-4.40) H 03/01/23 04:55 Vitamin B12 401 pg/mL (232-1245) 02/28/23 03:06 Folate 9.2 ng/mL (4.8-37.3) 03/01/23 04:55 Procalcitonin 35.37 ng/mL (0-0.5) H 02/27/23 17:54 TSH 1.00 uIU/mL (0.27-4.20) 02/28/23 03:06 TSH 1.02 uIU/mL (0.27-4.20) 02/28/23 03:06 Urine Color Yellow (Yellow) 02/27/23 23:36 Urine Appearance Hazy (CLEAR) A 02/27/23 23:36 Urine pH 5 (5-7) 02/27/23 23:36 Ur Specific [place] 1.005 (1.005-1.030) 02/27/23 23:36 Urine Protein Trace (Negative) 02/27/23 23:36 Urine Glucose (UA) Norm (Normal) 02/27/23 23:36 Urine Ketones Negative (Negative) 02/27/23 23:36 Urine Blood 3+ (Negative) H 02/27/23 23:36 Urine Nitrate Negative (Negative) 02/27/23 23:36 Urine Bilirubin Neg (Negative) 02/27/23 23:36 Urine Urobilinogen Neg mg/dL (Negative) 02/27/23 23:36 Ur Leukocyte Esterase Negative (Negative) 02/27/23 23:36 Urine RBC 0-4 /hpf (0-2) H 02/27/23 23:36 Urine WBC 5-10 /hpf (0-5) H 02/27/23 23:36 Ur Squamous Epith Cells None /hpf (0-5) 02/27/23 23:36 Amorphous Sediment Not Reportable 02/27/23 23:36 Urine Bacteria 1+ /hpf (NONE) H 02/27/23 23:36 Urine Mucus 1+ /hpf 02/27/23 23:36 Nasal Influ A H1 2008 PCR Not detected (NOT DETECT) 02/28/23 08:10 Urine Opiates Screen Negative ng/mL (Negative) 02/27/23 23:36 Ur Barbiturates Screen Negative ng/mL (Negative) 02/27/23 23:36 Ur Phencyclidine Scrn Negative ng/mL (Negative) 02/27/23 23:36 Ur Amphetamines Screen Positive ng/mL (Negative) H 02/27/23 23:36 U Benzodiazepines Scrn Positive ng/mL (Negative) H 02/27/23 23:36 Urine Cocaine Screen Negative ng/mL (Negative) 02/27/23 23:36 U Marijuana (THC) Screen Negative ng/mL (Negative) 02/27/23 23:36 Adenovirus (PCR) Not detected (NOT DETECT) 02/28/23 08:10 C. pneumoniae DNA (PCR) Not detected (NOT DETECT) 02/28/23 08:10 Coronavirus 229E (PCR) Not detected (NOT DETECT) 02/28/23 08:10 HIV 1&2 Ab & HIV 1 Ag Non-reactive (Non-Reactiv) 02/28/23 03:06 HIV 1&2 Antibody Non-reactive (Non-Reactiv) 02/28/23 03:06 Human Metapneumovir PCR Not detected (NOT DETECT) 02/28/23 08:10 Influenza A (H1) PCR Not detected (NOT DETECT) 02/28/23 08:10 Influenza A (H3) PCR Not detected (NOT DETECT) 02/28/23 08:10 Influenza Type A Ag negative (Negative) 02/27/23 18:30 Influenza Type A (PCR) Not detected (NOT DETECT) 02/28/23 08:10 Influenza Type B Ag negative (Negative) 02/27/23 18:30 Influenza Type B (PCR) Not detected (NOT DETECT) 02/28/23 08:10 M. pneumoniae (PCR) Not detected (NOT DETECT) 02/28/23 08:10 Parainfluenza 1 (PCR) Not detected (NOT DETECT) 02/28/23 08:10 Parainfluenza 2 (PCR) Not detected (NOT DETECT) 02/28/23 08:10 Parainfluenza 3 (PCR) Not detected (NOT DETECT) 02/28/23 08:10 Parainfluenza 4 (PCR) Not detected (NOT DETECT) 02/28/23 08:10 RSV Type A (PCR) Not detected (NOT DETECT) 02/28/23 08:10 RSV Type B (PCR) Not detected (NOT DETECT) 02/28/23 08:10 Entero/Rhino (PCR) Not detected (NOT DETECT) 02/28/23 08:10 SARS-CoV-2 (PCR) Not detected (NOT DETECT) 02/28/23 08:10 SARS-CoV-2 Ag (Rapid) Negative (Negative) 02/27/23 18:30 MRSA (PCR) Not detected (NOT DETECTED) 02/28/23 13:30 Micro: Microbiology 02/28/23 17:40 Gram Stain - Final Sputum - Expectorated Sputum A&P Assessment and plan (1) Community acquired pneumonia: She was started with vancomycin, Zosyn and azithromycin However due to worsening leukocytosis-antibiotics were switched to vancomycin meropenem and azithromycin All cultures are pending Will proceed with bronchoscopy and obtain BAL and sent for cultures Qualifiers: Laterality: left Lung location: upper lobe of lung Qualified Code(s): J18.9 - Pneumonia, unspecified organism (2) Mass of upper lobe of left lung: Given her significant smoking history-underlying malignancy cannot be ruled out Will proceed with bronchoscopy and if there is any endobronchial lesion will take endobronchial biopsies Patient given consent prior to procedure Consult Attestations 2 Time Spent in Patient Care: Greater than 35 minutes Coding Level of Care Code Acute Code for [facility] Fwd Diagnoses Community acquired pneumonia J18.9 Laterality: left Lung location: upper lobe of lung Mass of upper lobe of left lung R91.8 Time Spent (min) 54
--- NOTE | 2023-03-02 09:47 | ANES.PREANE2 ---
Pre-Anesthetic Assessment Height/Weight: Height 1.65 m Weight 92.533 kg Temp Pulse Resp BP Pulse Ox O2 Del Method O2 Flow Rate 97.6 F 89 19 H 98/65 98 Nasal Cannula 6 03/02/23 04:53 03/02/23 08:06 03/02/23 08:00 03/02/23 08:00 03/02/23 08:00 03/02/23 08:00 03/01/23 20:00 FiO2 4 03/02/23 08:00 Operation Date: 03/02/23 12:00 Proposed Procedures p Bronchoscopy(Not Applicable) - Jay Morejon DatarMD Familial anesthetic complications: None Was Beta George taken within 24 hours: N/A Was Clonidine taken within 24 hours: N/A Last intake: None Social No alcohol and No tobacco Exam alert, oriented x 3, clear to auscultation bilaterally and regular rate & rhythm coarse breath sounds b/l Airway Mallampati: Class II Dentition: full Pulmonary pneumonia w/ possible mass L upper lobe complicated by septic shock, no longer on levophed or high flow O2 Currently satting 95% on 4 L NC KITA Anesthetic Plan ASA status: 3 Anesthesia: MAC Risk of > 500 ml blood loss (7ml/kg in children): No Medications/Allergies Home Medications Medication Instructions Recorded Confirmed Last Taken Type No Known Home Medications 02/28/23 02/28/23 Unknown History Allergies Allergy/AdvReac Type Severity Reaction Status Date / Time No Known Allergies Allergy Verified 03/18/20 12:41 Current Medications Generic Name Dose Route Start Last Admin Trade Name Freq PRN Reason Stop Dose Admin Acetaminophen 650 mg 02/27/23 22:07 02/28/23 08:09 Acetaminophen 325 Mg Tablet PO 650 mg Q6H PRN Administration Mild/Mod Pain Or Temp >/= 101 Acetaminophen/Codeine Phosphate 1 tab 03/02/23 03:29 03/02/23 03:57 Acetaminophen-Codeine 300-30mg Tablet PO 1 tab Q8H PRN Administration MODERATE PAIN Acetylcysteine 100 mg 02/28/23 09:30 03/02/23 07:51 Acetylcysteine 200 Mg/Ml Sdv 4 Ml INHALATION 100 mg Q6H.RESP IRMA Administration Albuterol/Ipratropium 3 ml 02/27/23 20:04 02/28/23 09:07 Ipratropium-Albuterol 3 Ml Neb INHALATION 3 ml Q6H PRN Administration SHORTNESS OF BREATH Alprazolam 0.5 mg 02/28/23 14:00 03/02/23 05:44 Alprazolam 0.5 Mg Tablet PO 0.5 mg Q8H IRMA Administration Benzocaine 1 each 03/01/23 22:38 03/02/23 03:31 Cetylpyridinium Lozenge MUCOUS MEM 1 each Q2H PRN Administration SORE THROAT Budesonide 0.5 mg 02/28/23 09:25 03/02/23 07:51 Budesonide 0.5 Mg/2 Ml Neb INHALATION 0.5 mg BID.RESPIRATORY IRMA Administration norepinephrine 4 mg in 250 mls @ 0 mls/hr 02/27/23 22:00 02/28/23 20:00 Levophed IV 0 mcg/min .Q0M IRMA 0 mls/hr Titration Protocol Per Protocol Sodium Chloride 1,000 mls @ 75 mls/hr 02/27/23 22:15 03/02/23 07:04 Sodium Chloride 0.9% IV Not Given .[id number] IRMA Azithromycin 500 mg/ Sodium 250 mls @ 250 mls/hr 02/28/23 00:00 03/01/23 23:54 Chloride IV 250 mls/hr Q24H IRMA Administration Protocol Vancomycin/PEG/[place]/Lysine/Water 1,500 mg in 300 mls @ 200 mls/hr 02/28/23 08:45 03/02/23 08:02 Vancocin IV 200 mls/hr Q24H IRMA Administration Meropenem 1,000 mg/ Sodium 50 mls @ 100 mls/hr 03/01/23 10:45 03/02/23 03:24 Chloride IV 100 mls/hr Q8H IRMA Administration Protocol Iron Sucrose 200 mg/ Sodium 110 mls @ 220 mls/hr 03/01/23 13:15 03/01/23 14:37 Chloride IV 03/05/23 13:44 220 mls/hr Q24H IRMA Administration Ipratropium [place] 0.5 mg 02/28/23 14:00 03/02/23 07:51 Ipratropium 0.5 Mg/2.5 Ml Neb INHALATION 0.5 mg Q6H.RESP IRMA Administration Levalbuterol HCl 0.63 mg 02/28/23 14:00 03/02/23 07:51 Levalbuterol 0.63 Mg/3 Ml Neb INHALATION 0.63 mg Q6H.RESP IRMA Administration Methylprednisolone Sodium Succinate 40 mg 03/01/23 13:15 03/02/23 00:59 Methylprednisolone Sod Succ 40 Mg/Ml Inj IVP 40 mg Q12H IRMA Administration Morphine Sulfate 2 mg 02/28/23 10:00 02/28/23 17:15 Morphine 4 Mg/Ml Sdv 1 Ml IVP 2 mg Q4H PRN Administration SEVERE PAIN Nicotine 1 patch 02/28/23 10:15 03/02/23 08:05 Nicotine 14 Mg Patch TRANSDERMA 1 patch DAILY IRMA Administration Pantoprazole Sodium 40 mg 02/28/23 09:00 03/02/23 08:[address] 40 Mg Tablet PO 40 mg BID IRMA Administration PFSH Anesthesia Medical History (Updated 02/27/23 @ 23:51 by Lexus Navarro MD) History of GI bleed Social History Smoking and tobacco/nicotine status: current every day tobacco/nicotine user cigarettes Alcohol intake: current Alcohol intake frequency: few times a month Substance/Drug Use: never Data Anesthesia 03/02/23 03:13 03/02/23 03:13 Short CBC 03/01/23 03/02/23 Range/Units 04:55 03:13 WBC 20.86 H 31.31 H* (3.29-11.43) 10^3/uL Hgb 10.00 L 10.10 L (11.27-16.99) g/dL Hct 29.2 L 30.6 L (36-47) % MCV 90.1 91.3 (85-98) fl Plt Count 281 340 (157-399) 10^3/cmm Neut % (Auto) 89.7 88.1 % Neut # (Auto) 18.71 H 27.59 H (1.8-7.7) 10^3/uL BMP 03/01/23 03/02/23 04:55 03:13 Sodium 136 141 Potassium 3.4 L 3.9 Chloride 108 H 111 H Carbon Dioxide 15 L 17 L BUN 16 18 Creatinine 0.7 0.5 Glucose 129 H 120 H Calcium 8.0 L 8.5 Liver Function 03/01/23 03/02/23 Range/Units 04:55 03:13 Total Bilirubin 0.2 0.2 (0.15-1.2) mg/dL AST 11 9 (0-32) U/L ALT < 5 6 (0-33) U/L Alkaline Phosphatase 118 H 81 (35-105) U/L Albumin 2.6 L 2.6 L (3.5-5.2) g/dL COVID Results 02/28/23 08:10 Coronavirus 229E (PCR) Not detected SARS-CoV-2 (PCR) Not detected Microbiology 02/28/23 17:40 Gram Stain - Final Sputum - Expectorated Sputum Cardiac Studies: Echocardiogram 02/28/23
[2023-03-02] MEDS: sodium chloride 0.9% 1,000 ML 30 ML IV (12:22)
--- NOTE | 2023-03-02 12:41 | P.PN_ITS ---
Subjective 2 Subjective: Patient has remained hemodynamically stable and afebrile. Overnight patient had episodes of coughing spells. Requiring 5 L of oxygen supplementation to maintain saturation over 90%. Cleared by speech therapy yesterday. Repeat x- ray today morning appreciated for worsening of consolidation on left side with possible mucous plugging. Patient has remained of Levophed. Documented urine output of around 2.9 L in last 24 hours. Vitals/I&O/Wt Last Vital Signs Temp 97.2 F L 03/02/23 12:04 Pulse 80 03/02/23 12:04 Resp 20 H 03/02/23 12:04 BP 99/64 03/02/23 12:04 Pulse Ox 99 03/02/23 12:04 O2 Del Method Nasal Cannula 03/02/23 12:04 O2 Flow Rate 4 03/02/23 12:04 FiO2 4 03/02/23 08:00 03/01/23 03/02/23 03/02/23 22:59 06:59 14:59 Intake Total 1580 / 1980 1490 / 3470 Output Total 1500 / 1500 1450 / 2950 1000 / 1000 Balance 80 / 480 40 / 520 -1000 / -1000 Weight last 48 hrs Weight 92.533 kg Weight 88.451 kg Physical Exam 2 Narrative: General: No acute distress, AO x3, sick appearing, improving from yesterday HEENT: PERRLA, pupils bilaterally equal and reactive Chest: Normal vesicular breath sounds, coarse crackles present in left middle and upper zone with diffuse rhonchi, equal good air entry bilaterally CVS: S1-S2 regular, no murmurs, no tachycardia, no gallops, no rubs Abdomen: Soft, nontender, no organomegaly, bowel sounds present Neuro: No focal deficits, no facial deformity, AO x3, power 5/5 in all limbs Urinary Catheter Management: Doll: Cath Placed During This Visit: yes Reason for Continuing Indwelling Catheter: Accurate Measurement of Urinary Output in Critically Ill Patients Urinary Catheter Date of Insertion: 02/27/23 Urinary Catheter Time of Insertion: 23:15 Data 03/02/23 03:13 03/02/23 03:13 Micro: Microbiology 02/28/23 17:40 Gram Stain - Final Sputum - Expectorated Sputum Sputum Culture - Preliminary A&P Assessment and plan (1) Septic shock: Septic shock, as evidenced by leukocytosis 25,000, sinus tachycardia at 120, tachypnea with current respiratory rate between 23-30, signs of endorgan failure by way of acute kidney injury, acute hypoxia, elevated lactate at 4.6. Received sepsis fluid bolus on admission. Resolved. Keep mean artery pressure 65. Follow-up blood culture, sputum culture. Respiratory viral panel negative. For persistent leukocytosis Zosyn switched over to meropenem yesterday. Continue vancomycin, meropenem, azithromycin. (2) Community acquired pneumonia: CT findings noted with left upper to middle lobe consolidation versus mass. Will consult pulmonology once available. Worsening finding on chest x-ray today. Discussed in detail with entry level buyer. Possible requirement of bronchoscopy for mucous plug clearing along with possible mass biopsy. Will repeat CT chest prior to bronchoscopy. Antibiotics as above. Ipratropium, Xopenex every 6 hour, Pulmicort twice daily. Mucomyst every 6 hours. Aggressive pulmonary toilet with incentive spirometry and flutter valve. Add chest vest. MRSA swab negative. Qualifiers: Laterality: left Lung location: upper lobe of lung Qualified Code(s): J18.9 - Pneumonia, unspecified organism (3) Acute hypoxemic respiratory failure: As a result of community-acquired pneumonia Supplemental O2 to keep saturation above 92%. Nebulization treatment as above. Continue with Solu-Medrol 40 mg every 12 hourly. (4) Acute kidney injury: Likely as a result of septic shock, ATN. Resolved. Good urine output. Medical reconciliation done for nephrotoxic drugs. Strict input output charting, daily weights. Monitor electrolytes closely. Continue with Doll catheterization for today. (5) Hypomagnesemia: Likely dehydration, replete IV (6) Hypokalemia: Likely dehydration, replete IV (7) Hyponatremia: Resolved. Likely dehydration, normal saline, repeat with a.m. labs Plan Anxiety: Takes Xanax 1 mg twice daily at home. Continue with Xanax 0.5 every 8 hourly. Amphetamine positive: Blood culture awaited. HIV negative. Watch for withdrawals. DVT prophylaxis: Patient is at high risk of DVT. For now start on heparin 5000 every 12 hourly expectantly. Continue Protonix 40 mg twice daily. Add Carafate. History of GI bleed 2 years ago, she was recently planned to undergo endoscopic evaluation. This appears to be surveillance per patient description. Appreciate CT abdomen pelvis. Full code. NPO. Attestations 2 Medical Necessity Statement*: Requires further hospitalization for management of hypoxic respiratory failure in setting of left community-acquired pneumonia with possibility of mucous plugging and lung mass requiring bronchoscopy, resolving severe sepsis Diagnoses Septic shock A41.9; R65.21 Community acquired pneumonia J18.9 Laterality: left Lung location: upper lobe of lung Acute hypoxemic respiratory failure J96.01 Acute kidney injury N17.9 Hypomagnesemia E83.42 Hypokalemia E87.6 Hyponatremia E87.1
[2023-03-02] MEDS: lidocaine 1% INJ 10 mL (per mL) XX (12:48)
--- NOTE | 2023-03-02 12:54 | PM.OP ---
Operative Report Date of procedure: March 02, 2023 Pre-op diagnosis: Pneumonia Post-op diagnosis: same Procedure done: Dx Bronchoscope w/Washings or airway inspection Dx Bronchoscope w/BAL Bronchoscopy w/ therapeutic aspiration of the tracheobronchial tree (clearance of airway secretions, removal of mucus plugs) Surgeon: Jay Valdivia MD Brief History: Brandi Reyez is a 57 year old female admitted to hospital 02/27/2023 with chief complaint of worsening chest discomfort and dyspnea on exertion for 4 to 5 days. Reported that she was in her usual state of health 5 days ago when she developed runny nose and flulike symptoms which has gradually progressed and started having dyspnea with usual activities. She reported a previous history of double pneumonia earlier this year. She now required 4 L oxygen-previously she was not on any oxygen. She was hypotensive in the emergency room requiring pressors. Patient is a chronic smoker. Never diagnosed with asthma or COPD. On admission she was very dehydrated. She had past history significant for GI bleeding which needed cauterization to control. Admission CT chest showed large left-sided masslike consolidation with loss of air bronchograms. She was admitted to ICU and started on Levophed infusion and started on vancomycin, Zosyn and azithromycin and cultures were sent which are still pending. Gradually she was weaned off pressors. Her urine output improved. However overnight patient desaturated requiring 5 L of oxygen and chest x-ray showed worsening of left upper lobe pneumonia Hospitalist consulted for bronchoscopic evaluation of her airways and left upper lobe pneumonia given increasing FiO2 requirements-and worsening leukocytosis .. Chest x-ray showed extensive consolidation of left upper lobe pneumonia and lobe and consolidation in left lower lobe. Procedure: Procedure : Dx Bronchoscope w/Washings or airway inspection Dx Bronchoscope w/BAL Bronchoscopy w/ therapeutic aspiration of the tracheobronchial tree (clearance of airway secretions, removal of mucus plugs) Pre-Operative Diagnosis: Pneumonia Post-Operative Diagnosis: Same Indication: Worsening leukocytosis and left upper lobe consolidation- Consent: Consents were obtained from patient and placed in the chart Pre-procedure Evaluation: Patient was evaluated clinically and ancillary testing reviewed. The risk of having active MTB infection is very low in my clinical judgement. ASA: 3 Malampati score: unable to evaluate due to presence of endotracheal tube Indication: Worsening infiltrates on left side on chest x-ray Time out: Performed by the procedure team and nursing staff. Vent support maintained on Fio2 100. Anesthesia: Managed as per anesthesia. An LMA was placed Local anesthesia: The vocal cords, main harley, right and left mainstem bronchi were anesthetized with 1% lidocaine, 6 mL. Summary of Significant Findings: -Bronchoscope passed through laryngeal mask airway(LMA) used for initial inspection and airway clearance. Mobile vocal cords visualized. The scope was advanced through the glottis and inspected trachea. The harley, the right and left mainstem bronchi are anesthetized with 1% lidocaine. The tracheal mucosa appeared normal, no endotracheal lesion was seen. The harley was sharp. There was evidence of collapse of posterior wall of trachea when patient was coughing suggestive of tracheomalacia. 10 cc rocuronium was given to paralyze and once coughing stopped we continued with the procedure. The bronchoscope was then introduced into the right mainstem bronchus. The right upper lobe, right middle lobe and right lower lobe bronchi were examined up to the third subsegmental level and no abnormalities were identified. The mucosa appeared normal with no endobronchial lesions, active bleeding. There were some thick secretions in the right upper lobe which were suctioned right away. In a systematic manner bilateral bronchial tree was then examined. The bronchoscope was advanced into the left mainstem bronchus. The mucosa appeared normal with no endobronchial lesions. The left upper lobe, lingula and left lower lobe bronchi were examined up to the third subsegmental level and no abnormalities were identified. Mucosa appeared edematous with no definitive endobronchial lesion, active bleeding or mucous plug. There were copious amounts of clear secretions in the upper as well as lower lobe-which were suctioned right away. Bronchoscope was wedged at the entrance of anterior segment of left upper lobe, 60 cc normal saline was instilled and aspirated 25 cc bronchoalveolar lavage which was clear with thick mucus specks. There is no evidence of active bleeding. The bronchoscope was retracted and procedure terminated. Estimated Blood Loss: None Specimens: Bronchoalveolar lavage from left upper lobe sent for cultures, fluid analysis, PCP PCR, Asperillus antigen Complications:None; patient tolerated the procedure well. Disposition: Patient will be transferred back to ICU Surgeon: Jay Valdivia MD, [facility] Pulmonary critical Care Medicine [facility]
--- NOTE | 2023-03-02 13:10 | ANE.PACU2 ---
Inpatient post-anesthesia follow up: Airway intact: Yes Vital signs: Temperature 97.6 F Pulse Rate [Curren t] 96 Pulse Rate 96 Respiratory Rate [ Current] 22 Respiratory Rate 18 Blood Pressure 122/72 Pulse Oximetry [Cu rrent] 96 Pulse Oximetry 94 Oxygen Delivery Me thod Room Air Oxygen Flow Rate [ Current] 40 Oxygen Flow Rate 4 Fraction of Inspir ed Oxygen [ 30 Current] Fraction of Inspir ed Oxygen 4 Hydration adequate: Yes Nausea and vomiting: No Pain level: 1 Mental status: Baseline
[2023-03-02 13:17] LABS: Bronch Source LEFT UPPER LOBE; Cyto Order Verification Order Verified; PATH Referral Yes
[2023-03-02 14:09] LABS: Apprearance, Bronch Wash Cloudy (CLEAR); Color, Bronc Wash Slight Pink
[2023-03-02 14:11] LABS: Total Cells Counted Bronch 245
[2023-03-02] MEDS: guaiFENesin-codeine UDC 10 mL PO ×2 (14:59→20:56)
[2023-03-02] MEDS: iron sucrose 200 MG in sodium chloride 0.9% (100 ml) 100 ML 220 MG IV (14:59)
--- NOTE | 2023-03-02 17:25 | XRR_ITS ---
PROCEDURE INFORMATION: Exam: XR Chest Exam date and time: 03/02/2023 7:16 PM Age: 57 years old Clinical indication: Device placement; Other: Post bronch; Prior surgery; Surgery date: Post-operative (0-2 days); Additional info: Post bronchoscopy TECHNIQUE: Imaging protocol: Radiologic exam of the chest. Views: 1 view. COMPARISON: CT chest wo con [id number] 03/02/2023 10:51 AM FINDINGS: Lungs: Again noted is dense consolidation in the left upper lobe. Opacity at the left lung base likely represents effusion and/or parenchymal disease. The right lung is relatively clear. Pleural spaces: Unremarkable. No pleural effusion. No pneumothorax. Heart/Mediastinum: Unremarkable. No cardiomegaly. Bones/joints: Degenerative changes are noted in the bones. XR/XR chest 1V portable [id number] IMPRESSION: Persistent left-sided pneumonia.
[2023-03-02] MEDS: sodium chloride 0.9% 1,000 ML 75 ML IV (19:46)
--- NOTE | 2023-03-02 19:52 | PC.NURSE ---
NPO: Entered pt room to find her eating a burger and milkshake @approximately 1935. Informed pt that she has an NPO diet order and explained the importance of this. Placed burger and milkshake out of pt reach on the counter. Messaged Dr. Barksdale around 1939 to notify and clarify orders. Entered pt room several minutes later to find that the family had handed the food back to the pt and that the pt had ate all the food. Family at bedside stated, sorry we're rule breakers . Dr. Barksdale called to notify. Continuing NPO orders. Pt re- educated on the importance of NPO status. Pt resistant to education. Pt states, I don't know how i'm going to make it with no food, what am I suppose to do . Pt reminded that she just ate a burger and milkshake and is getting IV fluids. Pt started crying.
[2023-03-02] MEDS: benzonatate 100 mg Capsule 200 MG PO (20:57)
[2023-03-02] MEDS: azithromycin 500 MG in sodium chloride 0.9% 250 ML 250 MG IV (23:55)
[2023-03-03] VITALS (21 sets, daily range): BP systolic 92–132; BP diastolic 59–89; PULSE 83–102; RESP 16–25; TEMP 36.4–36.8; O2SAT 92–100
[2023-03-03] MEDS: guaiFENesin-codeine UDC 10 mL PO (01:53)
[2023-03-03] MEDS: meropenem 1,000 MG in sodium chloride 0.9% (plus) 50 ML 100 MG IV ×3 (01:56→20:49)
[2023-03-03] MEDS: efferdent effervescent 1 EACH DENTAL (01:58)
[2023-03-03 05:55] LABS: Basophils # 0.1 10^3/uL (0.0-0.1); Basophils % 0.7 %; Hematocrit 30.5 % (36-47); Lymphocytes # 1.3 10^3/uL (0.8-4.8); Lymphocytes % 6.7 %; Mean Corpuscular HGB Conc 32.5 g/dL (30-55); Mean Corpuscular Hemoglobin 29.7 pg (27-33); Mean Corpuscular Volume 91.6 fl (85-98); Mean Platelet Volume 10.4 fL (7.4-10.4); Monocytes # 1.1 10^3/uL (0.2-0.9); Monocytes % 5.5 %; Neutrophils # 15.17 10^3/uL (1.8-7.7); Nucleated Red Blood Cells # 0.1 /100WBC; Nucleated Red Blood Cells % 0.3 %; Platelet Count 314 10^3/cmm (157-399); Red Blood Count 3.33 10^6/uL (3.85-5.65); Red Cell Distribution Width 13.9 % (12.1-15.1); White Blood Count 19.43 10^3/uL (3.29-11.43)
[2023-03-03 06:13] LABS: Alanine Aminotransferase 11 U/L (0-33); Albumin Level 2.5 g/dL (3.5-5.2); Alkaline Phosphatase 91 U/L (35-105); Anion Gap 13.1 (5-19); Aspartate Amino Transferase 14 U/L (0-32); Blood Urea Nitrogen 21 mg/dL (6-20); Calcium 8.4 mg/dL (8.5-10.5); Carbon Dioxide 20 mmol/L (22-29); Chloride 112 mmol/L (98-107); Globulin 3.3 g/dL (1.3-4.6); Glomerular Filtration Rate 127.6 mL/min (90-130); Glucose 122 mg/dL (65-115); Osmolality Calculated 296 mOsm/kg (285-295); Potassium 4.1 mmol/L (3.5-5.1); Sodium 141 mmol/L (136-145); Total Bilirubin 0.2 mg/dL (0.15-1.2); Total Protein 5.8 g/dL (6.6-8.7)
[2023-03-03 06:14] LABS: Magnesium 2.6 mg/dL (1.7-2.3); Phosphorus 2.6 mg/dL (2.5-4.5)
[2023-03-03 06:21] LABS: Slide Review Slide Review Perform
[2023-03-03] MEDS: ALPRAZolam 0.5 mg Tablet PO (06:22)
[2023-03-03 08:57] LABS: Vancomycin Trough < 4.0 ug/mL (10-15)
[2023-03-03] MEDS: vancomycin 1,500 MG/300 ML PIGGYBACK 200 MG IV ×2 (09:22→20:47)
[2023-03-03] MEDS: pantoprazole DR 40 mg Tablet PO ×2 (09:23→17:48)
[2023-03-03] MEDS: nicotine 14 mg Patch 1 PATCH TRANSDERMA (09:23)
[2023-03-03] MEDS: methylPREDNISolone sod succ 40 mg/mL INJ IVP (09:23)
[2023-03-03] MEDS: benzonatate 100 mg Capsule 200 MG PO ×2 (09:23→20:47)
--- NOTE | 2023-03-03 09:26 | FL_ITS ---
WS: [id number] MODIFIED BARIUM SWALLOW TECHNIQUE: Modified barium swallow with speech therapy using multiple consistencies. FLUOROSCOPY TIME: 1min [id number] CLINICAL INFORMATION: Oropharyngeal dysphagia COMPARISON: None. FINDINGS: Multiple consistencies utilized. No evidence of yvette aspiration. Small amount of penetration with th in liquids. No difficulties with the barium tablet. No other suspicious findings. IMPRESSION: 1. No evidence of yvette aspiration. 2. Small amount of penetration with thin liquids.
--- NOTE | 2023-03-03 11:48 | P.PN_ITS ---
Subjective 2 Subjective: No acute events overnight. Patient has remained hemodynamically stable and afebrile. Today morning seen sitting up in chair. More awake and alert. Remains on room air but patient getting tachypneic and mild short of breath on minimal ambulation and conversation. Decreased bouts of cough. Patient underwent bronchoscopy yesterday. Blood work appreciated. Vitals/I&O/Wt Last Vital Signs Temp 97.6 F 03/03/23 06:00 Pulse 96 03/03/23 11:00 Resp 24 H 03/03/23 11:00 BP 113/75 03/03/23 08:00 Pulse Ox 100 03/03/23 11:00 O2 Del Method Room Air 03/03/23 08:00 O2 Flow Rate 4 03/03/23 02:00 FiO2 4 03/02/23 08:00 03/02/23 03/03/23 03/03/23 22:59 06:59 14:59 Intake Total 1877.5 / 2627.5 900.000 / 3527.500 Output Total 1200 / 2200 675 / 2875 Balance 677.5 / 427.5 225.000 / 652.500 Weight last 48 hrs Weight 96.479 kg Weight 92.533 kg Physical Exam 2 Narrative: General: No acute distress, AO x3, sick appearing, improving from yesterday HEENT: PERRLA, pupils bilaterally equal and reactive Chest: Normal vesicular breath sounds, coarse crackles present in left middle and upper zone with diffuse rhonchi, equal good air entry bilaterally CVS: S1-S2 regular, no murmurs, no tachycardia, no gallops, no rubs Abdomen: Soft, nontender, no organomegaly, bowel sounds present Neuro: No focal deficits, no facial deformity, AO x3, power 5/5 in all limbs Urinary Catheter Management: Doll: Cath Placed During This Visit: yes Reason for Continuing Indwelling Catheter: Accurate Measurement of Urinary Output in Critically Ill Patients Urinary Catheter Date of Insertion: 02/27/23 Urinary Catheter Time of Insertion: 23:15 Data 03/03/23 04:50 03/03/23 04:50 Micro: Microbiology 03/02/23 12:50 Gram Stain - Final Lung Left Upper Lobe 02/28/23 17:40 Gram Stain - Final Sputum - Expectorated Sputum Sputum Culture - Final A&P Assessment and plan (1) Septic shock: Septic shock, as evidenced by leukocytosis 25,000, sinus tachycardia at 120, tachypnea with current respiratory rate between 23-30, signs of endorgan failure by way of acute kidney injury, acute hypoxia, elevated lactate at 4.6. Received sepsis fluid bolus on admission. Resolved. Keep mean artery pressure 65. Blood cultures so far negative, sputum culture negative. Follow[facility]up [facility] cultures. Respiratory viral panel negative. Leukocytosis slightly trending down today. Has remained afebrile. For now continue with vancomycin, meropenem. Will discontinue azithromycin as has finished a 3-day course. (2) Community acquired pneumonia: CT findings noted with left upper to middle lobe consolidation versus mass. Will consult pulmonology once available. Worsening finding on chest x-ray today. Discussed in detail with lens and frames prescription clerk. Possible requirement of bronchoscopy for mucous plug clearing along with possible mass biopsy. Will repeat CT chest prior to bronchoscopy. Antibiotics as above. Ipratropium, Xopenex every 6 hour, Pulmicort twice daily. Stop Mucomyst every 6 hours. Aggressive pulmonary toilet with chest vest and incentive spirometry. MRSA swab negative. Follow-up results of mechanical soft diet and start on diet accordingly. Currently NPO. Qualifiers: Laterality: left Lung location: upper lobe of lung Qualified Code(s): J18.9 - Pneumonia, unspecified organism (3) Acute hypoxemic respiratory failure: As a result of community-acquired pneumonia Supplemental O2 to keep saturation above 92%. Nebulization treatment as above. Wean Solu-Medrol to 40 mg IV daily. (4) Acute kidney injury: Likely as a result of septic shock, ATN. Resolved. Good urine output. Medical reconciliation done for nephrotoxic drugs. Strict input output charting, daily weights. Monitor electrolytes closely. DC Doll catheter. Stop IV fluids for now. (5) Hypomagnesemia: Monitor daily. (6) Hypokalemia: Monitor daily and replete accordingly. (7) Hyponatremia: Resolved. Plan Anxiety: Takes Xanax 1 mg twice daily at home. Changed to Xanax 0.25 every 12 hourly. Amphetamine positive: Blood culture awaited. HIV negative. Watch for withdrawals. DVT prophylaxis: Patient is at high risk of DVT. For now start on heparin 5000 every 12 hourly expectantly. Continue Protonix 40 mg twice daily. Add Carafate. History of GI bleed 2 years ago, she was recently planned to undergo endoscopic evaluation. This appears to be surveillance per patient description. Appreciate CT abdomen pelvis. Full code. Modified barium swallow test results appreciated. Start on mechanical soft diet[facility] Attestations 2 Medical Necessity Statement*: Requires further hospitalization for management of hypoxic respiratory failure in setting of left upper lobe pneumonia Diagnoses Septic shock A41.9; R65.21 Community acquired pneumonia J18.9 Laterality: left Lung location: upper lobe of lung Acute hypoxemic respiratory failure J96.01 Acute kidney injury N17.9 Hypomagnesemia E83.42 Hypokalemia E87.6 Hyponatremia E87.1
[2023-03-03] MEDS: nystatin 100,000 unit/mL UDC 5 mL 500000 UNIT PO ×3 (13:24→20:47)
[2023-03-03] MEDS: guaiFENesin-codeine UDC 10 mL 5 ML PO (13:24)
[2023-03-03] MEDS: iron sucrose 200 MG in sodium chloride 0.9% (100 ml) 100 ML 220 MG IV (14:23)
[2023-03-03] MEDS: ALPRAZolam 0.5 mg Tablet 0.25 MG PO (17:48)
[2023-03-03 17:54] LABS: ABG PCO2 35.9 mmHg (35-45); ABG PH Result 7.37 (7.35-7.45); Alveolar-Arterial Oxygen Gradi 4.5 mmHg (5-10); Base Excess ABG -3.8 mmol/L (-2.0-2.0); Blood Gas Allen Test Pos; Blood Gas Operator Identificat MONRO; Blood Gas Sample Site Radial, left; Blood Gas Sample Type Arterial; Carboxyhemoglobin 0.9 %THgb (0.4-20.1); HCO3 ABG 20.9 mmol/L (22-26); HGB O2 Sat 92.6 % (95-100); Ionized Calcium Level - ABG 1.2 mmol/L (1.1-1.4); Methemoglobin 0.6 % (0.4-1.5); Oxygen Device ROOM AIR; Oxygen Saturation ABG 93.9; PO2 ABG 70.6 mmHg (80.0-100.0); PO2 FiO2 Ratio Arterial Blood 0; Potassium Level - ABG 3.7 mmol/L (3.5-5.0); Total Hemoglobin 11.1 g/dL (12-16)
[2023-03-04] VITALS (13 sets, daily range): BP systolic 107–136; BP diastolic 57–79; PULSE 77–95; RESP 15–37; TEMP 36.6–37.3; O2SAT 90–98
[2023-03-04] MEDS: guaiFENesin-codeine UDC 10 mL 5 ML PO ×3 (00:30→20:42)
[2023-03-04] MEDS: ipratropium 0.5 mg/2.5 mL Neb INHALATION ×4 (01:06→19:53)
[2023-03-04] MEDS: levalbuterol 0.63 mg/3 mL Neb INHALATION ×4 (01:06→19:53)
[2023-03-04] MEDS: meropenem 1,000 MG in sodium chloride 0.9% (plus) 50 ML 100 MG IV ×3 (03:14→16:02)
[2023-03-04 05:12] LABS: Basophils # 0.2 10^3/uL (0.0-0.1); Basophils % 0.8 %; Eosinophils # 0.1 10^3/uL (0.0-0.8); Eosinophils % 0.5 %; Hematocrit 32.3 % (36-47); Lymphocytes # 3.2 10^3/uL (0.8-4.8); Lymphocytes % 15.6 %; Mean Corpuscular HGB Conc 32.5 g/dL (30-55); Mean Corpuscular Hemoglobin 29.8 pg (27-33); Mean Corpuscular Volume 91.8 fl (85-98); Mean Platelet Volume 9.6 fL (7.4-10.4); Neutrophils # 12.86 10^3/uL (1.8-7.7); Nucleated Red Blood Cells # 0.1 /100WBC; Nucleated Red Blood Cells % 0.3 %; Platelet Count 415 10^3/cmm (157-399); Red Blood Count 3.52 10^6/uL (3.85-5.65)
[2023-03-04 05:26] LABS: Alanine Aminotransferase 8 U/L (0-33); Albumin Level 2.6 g/dL (3.5-5.2); Alkaline Phosphatase 74 U/L (35-105); Aspartate Amino Transferase 12 U/L (0-32); Blood Urea Nitrogen 18 mg/dL (6-20); Calcium 7.9 mg/dL (8.5-10.5); Carbon Dioxide 21 mmol/L (22-29); Chloride 111 mmol/L (98-107); Globulin 2.8 g/dL (1.3-4.6); Glomerular Filtration Rate 127.6 mL/min (90-130); Glucose 88 mg/dL (65-115); Osmolality Calculated 297 mOsm/kg (285-295); Sodium 143 mmol/L (136-145); Total Bilirubin 0.3 mg/dL (0.15-1.2); Total Protein 5.4 g/dL (6.6-8.7)
[2023-03-04 05:27] LABS: Anion Gap 14.5 (5-19); Potassium 3.5 mmol/L (3.5-5.1)
[2023-03-04] MEDS: pantoprazole DR 40 mg Tablet PO ×2 (07:51→16:03)
[2023-03-04] MEDS: benzonatate 100 mg Capsule 200 MG PO (07:51)
[2023-03-04] MEDS: methylPREDNISolone sod succ 40 mg/mL INJ IVP (07:51)
[2023-03-04] MEDS: ALPRAZolam 0.5 mg Tablet 0.25 MG PO (07:52)
[2023-03-04] MEDS: budesonide 0.5 mg/2 mL Neb INHALATION ×2 (07:56→19:53)
[2023-03-04] MEDS: iron sucrose 200 MG in sodium chloride 0.9% (100 ml) 100 ML 50 MG IV (12:04)
[2023-03-04] MEDS: nystatin 100,000 unit/mL UDC 5 mL 500000 UNIT PO ×3 (12:04→20:42)
[2023-03-04] MEDS: escitalopram 10 mg Tablet 20 MG PO (12:41)
--- NOTE | 2023-03-04 13:48 | P.PN_ITS ---
Subjective 2 Subjective: No acute vents overnight. Patient remains on room air. Complaining of feeling weak. Did ambulate in the hallway as per nursing staff yesterday. Denies having difficulty in breathing on ambulation but did complain of weakness and cough. Has remained hemodynamically stable. Complaining of feeling anxious. Vitals/I&O/Wt Last Vital Signs Temp 98.5 F 03/04/23 11:05 Pulse 95 03/04/23 11:05 Resp 18 03/04/23 11:05 BP 107/57 03/04/23 11:05 Pulse Ox 92 03/04/23 11:05 O2 Del Method Room Air 03/04/23 11:05 O2 Flow Rate 4 03/03/23 02:00 FiO2 4 03/02/23 08:00 03/03/23 03/04/23 03/04/23 22:59 06:59 14:59 Intake Total 1102.5 / 1302.5 350 / 1652.5 120 / 120 Balance 1102.5 / 1302.5 350 / 1652.5 120 / 120 Weight last 48 hrs Weight 95.889 kg Weight 96.479 kg Physical Exam 2 Narrative: General: No acute distress, AO x3, sick appearing, improving from yesterday HEENT: PERRLA, pupils bilaterally equal and reactive Chest: Normal vesicular breath sounds, diffuse rhonchi present on lower lung buckley , equal good air entry bilaterally CVS: S1-S2 regular, no murmurs, no tachycardia, no gallops, no rubs Abdomen: Soft, nontender, no organomegaly, bowel sounds present Neuro: No focal deficits, no facial deformity, AO x3, power 5/5 in all limbs Urinary Catheter Management: Doll: Cath Placed During This Visit: yes Reason for Continuing Indwelling Catheter: Accurate Measurement of Urinary Output in Critically Ill Patients Urinary Catheter Date of Insertion: 02/27/23 Urinary Catheter Time of Insertion: 23:15 Data 03/04/23 04:50 03/04/23 04:50 Micro: Microbiology 03/02/23 12:50 Gram Stain - Final Lung Left Upper Lobe Bronchial Washings Culture - Preliminary Yeast 02/27/23 20:21 Blood Culture - Preliminary Blood 02/27/23 20:16 Blood Culture - Preliminary Blood 02/28/23 17:40 Gram Stain - Final Sputum - Expectorated Sputum Sputum Culture - Final A&P Assessment and plan (1) Septic shock: Septic shock, as evidenced by leukocytosis 25,000, sinus tachycardia at 120, tachypnea with current respiratory rate between 23-30, signs of endorgan failure by way of acute kidney injury, acute hypoxia, elevated lactate at 4.6. Received sepsis fluid bolus on admission. Resolved. Keep mean artery pressure 65. Blood cultures so far negative, sputum culture negative. Follow-up [facility] cultures. Respiratory viral panel negative. Leukocytosis slightly trending down today. Has remained afebrile. For now continue with vancomycin, meropenem. Will discontinue azithromycin as has finished a 3-day course. (2) Community acquired pneumonia: CT findings noted with left upper to middle lobe consolidation versus mass. Will consult pulmonology once available. Worsening finding on chest x-ray today. Discussed in detail with polymer scientist. Possible requirement of bronchoscopy for mucous plug clearing along with possible mass biopsy. Will repeat CT chest prior to bronchoscopy. Antibiotics as above. Ipratropium, Xopenex every 6 hour, Pulmicort twice daily. Stop Mucomyst every 6 hours. Aggressive pulmonary toilet with chest vest and incentive spirometry. MRSA swab negative. Follow-up results of mechanical soft diet and start on diet accordingly. Currently NPO. Qualifiers: Laterality: left Lung location: upper lobe of lung Qualified Code(s): J18.9 - Pneumonia, unspecified organism (3) Acute hypoxemic respiratory failure: As a result of community-acquired pneumonia Supplemental O2 to keep saturation above 92%. Nebulization treatment as above. Wean Solu-Medrol to 40 mg IV daily. (4) Acute kidney injury: Likely as a result of septic shock, ATN. Resolved. Good urine output. Medical reconciliation done for nephrotoxic drugs. Strict input output charting, daily weights. Monitor electrolytes closely. DC Doll catheter. Stop IV fluids for now. (5) Hypomagnesemia: Monitor daily. (6) Hypokalemia: Monitor daily and replete accordingly. (7) Hyponatremia: Resolved. (8) Amphetamine abuse: Plan Anxiety: Takes Xanax 1 mg twice daily at home. Changed to Xanax 0.5 every 12 hours. Add Lexapro. Amphetamine positive: Blood culture awaited. HIV negative. Watch for withdrawals. DVT prophylaxis: Patient is at high risk of DVT. For now start on heparin 5000 every 12 hourly expectantly. Continue Protonix 40 mg twice daily. Add Carafate. History of GI bleed 2 years ago, she was recently planned to undergo endoscopic evaluation. This appears to be surveillance per patient description. Appreciate CT abdomen pelvis. Full code. Modified barium swallow test results appreciated. Start on mechanical soft diet. Plan for the day: Continue with IV meropenem. Patient has persistent leukocytosis. MRSA negative. Discontinue vancomycin. Bronchial wash cultures growing yeast. Continue with nystatin swish and swallow. Add fluconazole 200 mg oral daily. Oxygen supplementation keeping saturation over 90%. Continue with nebulization treatment. Change to oral steroids prednisone 40 mg daily for next 5 days. Patient complaining of anxiety. Increase Xanax to 0.5 mg p.o. every 12 hourly. Add Lexapro 30 mg oral daily. Continue mechanical soft diet. PT evaluation. If patient continues to improve can plan to discharge within next 48 hours depending on oxygenation and shortness of breath on ambulation with physical therapy. Attestations 2 Medical Necessity Statement*: Requires further hospitalization for management of respiratory failure in setting of left-sided pneumonia, resolving sepsis, KITA in a patient with urine drug screen positive for amphetamines, severe anxiety Diagnoses Septic shock A41.9; R65.21 Community acquired pneumonia J18.9 Laterality: left Lung location: upper lobe of lung Acute hypoxemic respiratory failure J96.01 Acute kidney injury N17.9 Hypomagnesemia E83.42 Hypokalemia E87.6 Hyponatremia E87.1 Amphetamine abuse F15.10
[2023-03-04] MEDS: fluconazole premix 200 MG/100 ML PREMIX 100 MG IV (16:03)
--- NOTE | 2023-03-04 18:00 | PC.NURSE ---
Patient verbalized it was ok to talk with mother and give any information and updates. Name: Nahomi Griffith phone number [phone].
--- NOTE | 2023-03-04 18:00 | PC.SOCIAL ---
Mother ok to discuss information with Nahomi Griffith [phone].
[2023-03-04] MEDS: ALPRAZolam 0.5 mg Tablet PO (20:42)
[2023-03-04 22:48] LABS: Legionella Specimen Source BRONCH
[2023-03-05] VITALS (10 sets, daily range): BP systolic 99–156; BP diastolic 56–81; PULSE 82–105; RESP 12–18; TEMP 36.6–37; O2SAT 88–95
[2023-03-05] MEDS: levalbuterol 0.63 mg/3 mL Neb INHALATION ×3 (01:26→13:54)
[2023-03-05] MEDS: ipratropium 0.5 mg/2.5 mL Neb INHALATION ×3 (01:26→13:54)
[2023-03-05 03:02] LABS: Basophils # 0.2 10^3/uL (0.0-0.1); Basophils % 0.9 %; Eosinophils # 0.6 10^3/uL (0.0-0.8); Eosinophils % 2.8 %; Hematocrit 35.4 % (36-47); Lymphocytes # 3.8 10^3/uL (0.8-4.8); Mean Corpuscular HGB Conc 33.1 g/dL (30-55); Mean Corpuscular Hemoglobin 29.6 pg (27-33); Mean Corpuscular Volume 89.6 fl (85-98); Monocytes # 0.6 10^3/uL (0.2-0.9); Monocytes % 3.1 %; Neutrophils # 12.55 10^3/uL (1.8-7.7); Neutrophils % 63.2 %; Nucleated Red Blood Cells # 0.1 /100WBC; Nucleated Red Blood Cells % 0.3 %; Platelet Count 446 10^3/cmm (157-399); Red Blood Count 3.95 10^6/uL (3.85-5.65); Red Cell Distribution Width 13.3 % (12.1-15.1); White Blood Count 19.87 10^3/uL (3.29-11.43)
[2023-03-05 03:25] LABS: Alanine Aminotransferase 10 U/L (0-33); Albumin Level 2.7 g/dL (3.5-5.2); Alkaline Phosphatase 85 U/L (35-105); Aspartate Amino Transferase 12 U/L (0-32); Blood Urea Nitrogen 8 mg/dL (6-20); Calcium 7.9 mg/dL (8.5-10.5); Carbon Dioxide 27 mmol/L (22-29); Chloride 98 mmol/L (98-107); Globulin 3.1 g/dL (1.3-4.6); Glomerular Filtration Rate 165.1 mL/min (90-130); Glucose 98 mg/dL (65-115); Osmolality Calculated 280 mOsm/kg (285-295); Sodium 136 mmol/L (136-145); Total Bilirubin 0.5 mg/dL (0.15-1.2); Total Protein 5.8 g/dL (6.6-8.7)
[2023-03-05] MEDS: meropenem 1,000 MG in sodium chloride 0.9% (plus) 50 ML 100 MG IV ×3 (03:45→18:00)
[2023-03-05] MEDS: benzonatate 100 mg Capsule 200 MG PO ×2 (03:48→21:25)
[2023-03-05] MEDS: acetaminophen 325 mg Tablet 650 MG PO (03:48)
[2023-03-05] MEDS: potassium chloride ER 20 mEq Tablet 40 MEQ PO ×2 (05:45→11:09)
[2023-03-05] MEDS: budesonide 0.5 mg/2 mL Neb INHALATION (07:23)
[2023-03-05] MEDS: guaiFENesin-codeine UDC 10 mL 5 ML PO (08:16)
[2023-03-05] MEDS: predniSONE 20 mg Tablet 40 MG PO (08:16)
[2023-03-05] MEDS: escitalopram 10 mg Tablet 20 MG PO (08:16)
[2023-03-05] MEDS: pantoprazole DR 40 mg Tablet PO ×2 (08:16→18:00)
[2023-03-05] MEDS: nystatin 100,000 unit/mL UDC 5 mL 500000 UNIT PO ×4 (08:17→21:25)
[2023-03-05] MEDS: ALPRAZolam 0.5 mg Tablet PO ×2 (08:17→21:25)
[2023-03-05] MEDS: iron sucrose 200 MG in sodium chloride 0.9% (100 ml) 100 ML 220 MG IV (13:34)
--- NOTE | 2023-03-05 14:31 | PM.PN ---
Subjective Subjective: No acute events overnight. As per nursing staff patient less anxious overnight. Able to complete conversation without difficulty in breathing. Remains on room air. Coughing less. Patient herself denies any new complaints. Has remained hemodynamically stable and afebrile. Vitals/I&O/Wt Last Vital Signs Temp 97.9 F 03/05/23 12:00 Pulse 105 H 03/05/23 13:57 Resp 17 03/05/23 13:57 BP 102/62 03/05/23 12:00 Pulse Ox 94 03/05/23 13:57 O2 Del Method Room Air 03/05/23 13:57 O2 Flow Rate 1 03/04/23 20:00 FiO2 4 03/02/23 08:00 03/04/23 03/05/23 03/05/23 22:59 06:59 14:59 Intake Total 260 / 430 50 / 480 120 / 120 Balance 260 / 430 50 / 480 120 / 120 Weight last 48 hrs Weight 89.443 kg Weight 95.889 kg Physical Exam Narrative: General: No acute distress, AO x3, sick appearing, improving from yesterday HEENT: PERRLA, pupils bilaterally equal and reactive Chest: Normal vesicular breath sounds, diffuse rhonchi present on lower lung buckley , equal good air entry bilaterally CVS: S1-S2 regular, no murmurs, no tachycardia, no gallops, no rubs Abdomen: Soft, nontender, no organomegaly, bowel sounds present Neuro: No focal deficits, no facial deformity, AO x3, power 5/5 in all limbs Urinary Catheter Management: Doll: Cath Placed During This Visit: yes Reason for Continuing Indwelling Catheter: Accurate Measurement of Urinary Output in Critically Ill Patients Urinary Catheter Date of Insertion: 02/27/23 Urinary Catheter Time of Insertion: 23:15 Data 03/05/23 02:22 03/05/23 02:22 Micro: Microbiology 03/02/23 12:50 Mycobacterial Smear - Preliminary Body Fluids - Bronchial 03/02/23 12:50 Gram Stain - Final Lung Left Upper Lobe Bronchial Washings Culture - Preliminary Yeast A&P Assessment and plan (1) Septic shock: Septic shock, as evidenced by leukocytosis 25,000, sinus tachycardia at 120, tachypnea with current respiratory rate between 23-30, signs of endorgan failure by way of acute kidney injury, acute hypoxia, elevated lactate at 4.6. Received sepsis fluid bolus on admission. Resolved. Keep mean artery pressure 65. Blood cultures so far negative, sputum culture negative. Follow-up [facility] cultures. Respiratory viral panel negative. Leukocytosis slightly trending down today. Has remained afebrile. For now continue with vancomycin, meropenem. Will discontinue azithromycin as has finished a 3-day course. (2) Community acquired pneumonia: CT findings noted with left upper to middle lobe consolidation versus mass. Will consult pulmonology once available. Worsening finding on chest x-ray today. Discussed in detail with surface logging systems logger. Possible requirement of bronchoscopy for mucous plug clearing along with possible mass biopsy. Will repeat CT chest prior to bronchoscopy. Antibiotics as above. Ipratropium, Xopenex every 6 hour, Pulmicort twice daily. Stop Mucomyst every 6 hours. Aggressive pulmonary toilet with chest vest and incentive spirometry. MRSA swab negative. Follow-up results of mechanical soft diet and start on diet accordingly. Currently NPO. Qualifiers: Laterality: left Lung location: upper lobe of lung Qualified Code(s): J18.9 - Pneumonia, unspecified organism (3) Acute hypoxemic respiratory failure: As a result of community-acquired pneumonia Supplemental O2 to keep saturation above 92%. Nebulization treatment as above. Wean Solu-Medrol to 40 mg IV daily. (4) Acute kidney injury: Likely as a result of septic shock, ATN. Resolved. Good urine output. Medical reconciliation done for nephrotoxic drugs. Strict input output charting, daily weights. Monitor electrolytes closely. DC Doll catheter. Stop IV fluids for now. (5) Hypomagnesemia: Monitor daily. (6) Hypokalemia: Monitor daily and replete accordingly. (7) Hyponatremia: Resolved. (8) Amphetamine abuse: Plan Anxiety: Takes Xanax 1 mg twice daily at home. Changed to Xanax 0.5 every 12 hours. Add Lexapro. Amphetamine positive: Blood culture awaited. HIV negative. Watch for withdrawals. DVT prophylaxis: Patient is at high risk of DVT. For now start on heparin 5000 every 12 hourly expectantly. Continue Protonix 40 mg twice daily. Add Carafate. History of GI bleed 2 years ago, she was recently planned to undergo endoscopic evaluation. This appears to be surveillance per patient description. Appreciate CT abdomen pelvis. Full code. Modified barium swallow test results appreciated. Start on mechanical soft diet. Plan for the day: Patient has persistent leukocytosis. Has remained hemodynamically stable and afebrile. On room air. For now continue with IV meropenem and IV fluconazole. MRSA swab negative so discontinue vancomycin the patient had more than 5. Continue with nebulization treatment, aggressive pulmonary toilet. Out of bed to chair. Will repeat chest x-ray today for further monitoring of possible left upper lobe mass. Depending on the x-ray will discuss further with pulmonology about further plans of action. Anxiety better. Continue with Lexapro 20 mg oral daily and Xanax 0.5 p.o. every 12 hours but will change it to as needed. Continue with steroids for overall 5-day more. Continue with Tessalon Perles. Will switch to Robitussin with codeine as needed. Stop standing order. Found to have hypokalemia. Replace with 80 mg of oral potassium. Patient already received 40 in the morning. Will give 40 more. Attestations Medical Necessity Statement*: Requires further hospitalization for management of hypoxia in setting of respiratory failure from his left sided pneumonia requiring bronchoscopy, anxiety in setting of amphetamine abuse and further evaluation of left upper lobe mass is done. Diagnoses Septic shock A41.9; R65.21 Community acquired pneumonia J18.9 Laterality: left Lung location: upper lobe of lung Acute hypoxemic respiratory failure J96.01 Acute kidney injury N17.9 Hypomagnesemia E83.42 Hypokalemia E87.6 Hyponatremia E87.1 Amphetamine abuse F15.10
--- NOTE | 2023-03-05 14:36 | XRR_ITS ---
PROCEDURE INFORMATION: Exam: XR Chest Exam date and time: 03/05/2023 6:06 PM Age: 57 years old Clinical indication: Shortness of breath; Patient HX: Worsening respiratory distress; Left upper lobe mass TECHNIQUE: Imaging protocol: Radiologic exam of the chest. Views: 1 view. COMPARISON: CR XR chest 1V portable [id number] 03/02/2023 7:16 PM FINDINGS: Lungs: Residual left upper lobe consolidation with air bronchograms, which is significantly improved since 03/02/2023 x-ray. Pleural spaces: No pneumothorax, or pleural effusion. Heart/Mediastinum: Cardiac silhouette is within normal limits. Bones/joints: Unremarkable. XR/XR chest 1V portable [id number] IMPRESSION: Improving left upper lobe consolidation with air bronchograms.
[2023-03-05] MEDS: fluconazole premix 200 MG/100 ML PREMIX 100 MG IV (15:32)
[2023-03-06] VITALS (9 sets, daily range): BP systolic 99–115; BP diastolic 62–72; PULSE 73–92; RESP 15–20; TEMP 36.6–37; O2SAT 92–98
[2023-03-06 03:06] LABS: Basophils # 0.1 10^3/uL (0.0-0.1); Basophils % 0.7 %; Eosinophils # 0.6 10^3/uL (0.0-0.8); Eosinophils % 3.4 %; Hematocrit 33.9 % (36-47); Lymphocytes # 4.2 10^3/uL (0.8-4.8); Lymphocytes % 24.9 %; Mean Corpuscular HGB Conc 33.3 g/dL (30-55); Mean Corpuscular Hemoglobin 29.9 pg (27-33); Mean Corpuscular Volume 89.7 fl (85-98); Mean Platelet Volume 9.5 fL (7.4-10.4); Monocytes # 0.6 10^3/uL (0.2-0.9); Monocytes % 3.8 %; Neutrophils # 9.73 10^3/uL (1.8-7.7); Neutrophils % 57.9 %; Nucleated Red Blood Cells % 0.1 %; Platelet Count 464 10^3/cmm (157-399); Red Blood Count 3.78 10^6/uL (3.85-5.65); Red Cell Distribution Width 13.3 % (12.1-15.1); White Blood Count 16.81 10^3/uL (3.29-11.43)
[2023-03-06] MEDS: levalbuterol 0.63 mg/3 mL Neb INHALATION ×3 (03:09→14:36)
[2023-03-06] MEDS: ipratropium 0.5 mg/2.5 mL Neb INHALATION ×3 (03:09→14:36)
[2023-03-06 03:16] LABS: Slide Review Slide Review Perform
[2023-03-06 03:29] LABS: Alanine Aminotransferase 9 U/L (0-33); Albumin Level 2.6 g/dL (3.5-5.2); Alkaline Phosphatase 77 U/L (35-105); Anion Gap 12.7 (5-19); Aspartate Amino Transferase 9 U/L (0-32); Blood Urea Nitrogen 10 mg/dL (6-20); Calcium 8.2 mg/dL (8.5-10.5); Carbon Dioxide 26 mmol/L (22-29); Chloride 103 mmol/L (98-107); Globulin 2.9 g/dL (1.3-4.6); Glomerular Filtration Rate 165.1 mL/min (90-130); Glucose 101 mg/dL (65-115); Osmolality Calculated 285 mOsm/kg (285-295); Potassium 3.7 mmol/L (3.5-5.1); Sodium 138 mmol/L (136-145); Total Bilirubin 0.3 mg/dL (0.15-1.2); Total Protein 5.5 g/dL (6.6-8.7)
[2023-03-06] MEDS: meropenem 1,000 MG in sodium chloride 0.9% (plus) 50 ML 100 MG IV ×3 (03:47→17:15)
[2023-03-06] MEDS: escitalopram 10 mg Tablet 20 MG PO (08:01)
[2023-03-06] MEDS: nystatin 100,000 unit/mL UDC 5 mL 500000 UNIT PO ×4 (08:01→21:43)
[2023-03-06] MEDS: predniSONE 20 mg Tablet 40 MG PO (08:01)
[2023-03-06] MEDS: pantoprazole DR 40 mg Tablet PO ×2 (08:02→17:15)
[2023-03-06] MEDS: budesonide 0.5 mg/2 mL Neb INHALATION (09:04)
[2023-03-06] MEDS: ALPRAZolam 0.5 mg Tablet PO ×2 (09:34→21:43)
--- NOTE | 2023-03-06 13:16 | P.PN_ITS ---
Subjective 2 Subjective: Seen today. She says she feels better. Required some oxygen last night but is now on room air. Says it is difficult for her to bring up sputum. Vitals/I&O/Wt Last Vital Signs Temp 98.6 F 03/06/23 11:41 Pulse 78 03/06/23 11:41 Resp 16 03/06/23 11:41 BP 110/68 03/06/23 11:41 Pulse Ox 92 03/06/23 11:41 O2 Del Method Room Air 03/06/23 11:41 O2 Flow Rate 3 03/06/23 08:55 FiO2 4 03/02/23 08:00 03/05/23 03/06/23 03/06/23 22:59 06:59 14:59 Intake Total 270 / 670 50 / 720 110 / 110 Balance 270 / 670 50 / 720 110 / 110 Weight last 48 hrs Weight 89.443 kg Physical Exam 2 Narrative: General: No acute distress, AO x3, laying in bed. HEENT: PERRLA, pupils bilaterally equal and reactive Chest: Normal vesicular breath sounds, diffuse rhonchi present on lower lung buckley , equal good air entry bilaterally CVS: S1-S2 regular, no murmurs, no tachycardia, no gallops, no rubs Abdomen: Soft, nontender, no organomegaly, bowel sounds present Neuro: No focal deficits, no facial deformity, AO x3 Urinary Catheter Management: Doll: Cath Placed During This Visit: yes Reason for Continuing Indwelling Catheter: Accurate Measurement of Urinary Output in Critically Ill Patients Urinary Catheter Date of Insertion: 02/27/23 Urinary Catheter Time of Insertion: 23:15 Data 03/06/23 02:25 03/06/23 02:25 Micro: Microbiology 03/02/23 12:50 Fungal Smear - Preliminary Other Source 03/02/23 12:50 Mycobacterial Smear - Preliminary Body Fluids - Bronchial A&P Assessment and plan (1) Septic shock: Septic shock, as evidenced by leukocytosis 25,000, sinus tachycardia at 120, tachypnea with current respiratory rate between 23-30, signs of endorgan failure by way of acute kidney injury, acute hypoxia, elevated lactate at 4.6. Received sepsis fluid bolus on admission. Resolved. Keep mean artery pressure 65. Blood cultures so far negative, sputum culture negative. Follow-up [facility] cultures. Respiratory viral panel negative. Leukocytosis slightly trending down today. Has remained afebrile. For now continue with vancomycin, meropenem. Will discontinue azithromycin as has finished a 3-day course. (2) Community acquired pneumonia: CT findings noted with left upper to middle lobe consolidation versus mass. Will consult pulmonology once available. Worsening finding on chest x-ray today. Discussed in detail with [employer] ripsaw operator. Possible requirement of bronchoscopy for mucous plug clearing along with possible mass biopsy. Will repeat CT chest prior to bronchoscopy. Antibiotics as above. Ipratropium, Xopenex every 6 hour, Pulmicort twice daily. Stop Mucomyst every 6 hours. Aggressive pulmonary toilet with chest vest and incentive spirometry. MRSA swab negative. Follow-up results of mechanical soft diet and start on diet accordingly. Currently NPO. Qualifiers: Laterality: left Lung location: upper lobe of lung Qualified Code(s): J18.9 - Pneumonia, unspecified organism (3) Acute hypoxemic respiratory failure: As a result of community-acquired pneumonia Supplemental O2 to keep saturation above 92%. Nebulization treatment as above. Wean Solu-Medrol to 40 mg IV daily. (4) Acute kidney injury: Likely as a result of septic shock, ATN. Resolved. Good urine output. Medical reconciliation done for nephrotoxic drugs. Strict input output charting, daily weights. Monitor electrolytes closely. DC Doll catheter. Stop IV fluids for now. (5) Hypomagnesemia: Monitor daily. (6) Hypokalemia: Monitor daily and replete accordingly. (7) Hyponatremia: Resolved. (8) Amphetamine abuse: Plan Anxiety: Takes Xanax 1 mg twice daily at home. Changed to Xanax 0.5 every 12 hours. Add Lexapro. Amphetamine positive: Blood culture awaited. HIV negative. Watch for withdrawals. DVT prophylaxis: Patient is at high risk of DVT. For now start on heparin 5000 every 12 hourly expectantly. Continue Protonix 40 mg twice daily. Add Carafate. History of GI bleed 2 years ago, she was recently planned to undergo endoscopic evaluation. This appears to be surveillance per patient description. Appreciate CT abdomen pelvis. Full code. Modified barium swallow test results appreciated. Start on mechanical soft diet. Plan for the day: Patient has persistent leukocytosis. Has remained hemodynamically stable and afebrile. On room air. For now continue with IV meropenem and IV fluconazole. MRSA swab negative so discontinue vancomycin the patient had more than 5. Continue with nebulization treatment, aggressive pulmonary toilet. Out of bed to chair. Add flutter valve today. Will repeat chest x-ray today for further monitoring of possible left upper lobe mass. Pulmonology not available today. Will discuss further plan of action with them tomorrow. Anxiety better. Continue with Lexapro 20 mg oral daily and Xanax 0.5 p.o. every 12 hours but will change it to as needed. Continue with steroids for overall 5-day more. Continue with Tessalon Perles. Will switch to Robitussin with codeine as needed. Stop standing order. Hypokalemia: Resolved. Will recheck BMP in AM. Attestations 2 Medical Necessity Statement*: Requires further hospitalization for management of hypoxia in setting of respiratory failure from his left sided pneumonia requiring bronchoscopy, anxiety in setting of amphetamine abuse and further evaluation of left upper lobe mass is done. Diagnoses Septic shock A41.9; R65.21 Community acquired pneumonia J18.9 Laterality: left Lung location: upper lobe of lung Acute hypoxemic respiratory failure J96.01 Acute kidney injury N17.9 Hypomagnesemia E83.42 Hypokalemia E87.6 Hyponatremia E87.1 Amphetamine abuse F15.10
[2023-03-06] MEDS: fluconazole premix 200 MG/100 ML PREMIX 100 MG IV (15:28)
[2023-03-06] MEDS: benzonatate 100 mg Capsule 200 MG PO (21:44)
[2023-03-07] VITALS (11 sets, daily range): BP systolic 97–126; BP diastolic 60–76; PULSE 72–91; RESP 15–20; TEMP 36.5–37; O2SAT 92–95; BMI 31.1
[2023-03-07] MEDS: meropenem 1,000 MG in sodium chloride 0.9% (plus) 50 ML 100 MG IV ×2 (02:31→10:14)
[2023-03-07] MEDS: ipratropium 0.5 mg/2.5 mL Neb INHALATION ×3 (02:41→13:16)
[2023-03-07] MEDS: levalbuterol 0.63 mg/3 mL Neb INHALATION ×3 (02:41→13:16)
[2023-03-07 07:01] LABS: Basophils # 0.1 10^3/uL (0.0-0.1); Basophils % 0.4 %; Eosinophils # 0.5 10^3/uL (0.0-0.8); Eosinophils % 2.8 %; Hematocrit 35.8 % (36-47); Lymphocytes # 5.1 10^3/uL (0.8-4.8); Lymphocytes % 31.3 %; Mean Corpuscular HGB Conc 32.7 g/dL (30-55); Mean Corpuscular Hemoglobin 29.4 pg (27-33); Mean Corpuscular Volume 89.9 fl (85-98); Mean Platelet Volume 9.4 fL (7.4-10.4); Monocytes # 0.6 10^3/uL (0.2-0.9); Monocytes % 3.6 %; Neutrophils # 9.24 10^3/uL (1.8-7.7); Neutrophils % 57.1 %; Nucleated Red Blood Cells % 0 %; Platelet Count 454 10^3/cmm (157-399); Red Blood Count 3.98 10^6/uL (3.85-5.65); Red Cell Distribution Width 13.6 % (12.1-15.1); White Blood Count 16.21 10^3/uL (3.29-11.43)
[2023-03-07 07:16] LABS: Anion Gap 10.9 (5-19); Blood Urea Nitrogen 12 mg/dL (6-20); Calcium 8.6 mg/dL (8.5-10.5); Carbon Dioxide 25 mmol/L (22-29); Chloride 102 mmol/L (98-107); Glomerular Filtration Rate 165.1 mL/min (90-130); Glucose 89 mg/dL (65-115); Magnesium 2.2 mg/dL (1.7-2.3); Osmolality Calculated 277 mOsm/kg (285-295); Potassium 3.9 mmol/L (3.5-5.1); Sodium 134 mmol/L (136-145)
[2023-03-07] MEDS: budesonide 0.5 mg/2 mL Neb INHALATION (08:03)
[2023-03-07] MEDS: escitalopram 10 mg Tablet 20 MG PO (10:11)
[2023-03-07] MEDS: predniSONE 20 mg Tablet 40 MG PO (10:12)
[2023-03-07] MEDS: pantoprazole DR 40 mg Tablet PO ×2 (10:12→18:23)
[2023-03-07] MEDS: nystatin 100,000 unit/mL UDC 5 mL 500000 UNIT PO ×4 (10:12→20:12)
[2023-03-07] MEDS: ALPRAZolam 0.5 mg Tablet PO (10:14)
[2023-03-07] MEDS: fluconazole premix 200 MG/100 ML PREMIX 100 MG IV (14:44)
--- NOTE | 2023-03-07 14:59 | P.PN_ITS ---
Vitals/I&O/Wt Last Vital Signs Temp 98.3 F 03/07/23 11:30 Pulse 91 03/07/23 13:16 Resp 20 H 03/07/23 13:16 BP 97/60 03/07/23 11:30 Pulse Ox 94 03/07/23 13:16 O2 Del Method Room Air 03/07/23 13:16 O2 Flow Rate 3 03/06/23 08:55 FiO2 4 03/02/23 08:00 03/06/23 03/07/23 03/07/23 22:59 06:59 14:59 Intake Total 750 / 860 530 / 1390 1650 / 1650 Balance 750 / 860 530 / 1390 1650 / 1650 Weight last 48 hrs Weight 84.912 kg Physical Exam 2 Urinary Catheter Management: Doll: Cath Placed During This Visit: yes Reason for Continuing Indwelling Catheter: Accurate Measurement of Urinary Output in Critically Ill Patients Urinary Catheter Date of Insertion: 02/27/23 Urinary Catheter Time of Insertion: 23:15 Data 03/07/23 06:16 03/07/23 06:16 Micro: Microbiology 03/02/23 12:50 Fungal Smear - Preliminary Other Source 02/27/23 20:21 Blood Culture - Final Blood 02/27/23 20:16 Blood Culture - Final Blood 03/02/23 12:50 Mycobacterial Smear - Preliminary Body Fluids - Bronchial 03/02/23 12:50 Gram Stain - Final Lung Left Upper Lobe Bronchial Washings Culture - Final Kaitlynn albicans Coding Level of Care Code Acute Code for Chg Fwd
--- NOTE | 2023-03-07 15:38 | PM.DCS ---
Discharge Providers Date of Admission: 02/27/23 20:13 Date of Discharge: March 07, 2023 Attending Provider at Admission: Darrick Barksdale MD Attending Provider at Discharge: Cammie Nesbitt MD Primary Care Provider: Conrado Wills Diagnoses at Discharge Discharge Diagnosis (1) Septic shock: Status: Resolved (2) Community acquired pneumonia: Status: Acute Qualifiers: Laterality: left Lung location: upper lobe of lung Qualified Code(s): J18.9 - Pneumonia, unspecified organism (3) Acute hypoxemic respiratory failure: Status: Resolved (4) Acute kidney injury: Status: Resolved (5) Hypomagnesemia: Status: Resolved (6) Hypokalemia: Status: Resolved (7) Hyponatremia: Status: Resolved (8) Amphetamine abuse: Status: Acute Reason for Visit Reason for Visit: resp distress Brief History: As per Dr. Navarro Brandi Reyez is a 57 year old female who is coming to the hospital today with chief complaints of 4 to 5 days of worsening chest discomfort and dyspnea on exertion. Patient states that she was in her usual state of health about 5 days ago when she developed a runny nose and flulike symptoms. Symptoms continued to progress over the next 4 to 5 days when she started feeling short of breath with usual activities. Today she is needing 4 L/min, never previously having been on oxygen. Has a mostly dry cough, minimal expectoration. No hemoptysis. She had 1 episode of vomiting today. No diarrhea. No abdominal pain. She is a chronic smoker. No known history of asthma or COPD. States that she has not peed in the last 24 hours and feels very dehydrated. Endorses fatigue. Sick contacts at home with a young grandson with similar symptoms. Past history notable for history of GI bleeding, patient states that her stomach blew out and she lost a lot of blood. States that bleeding was controlled by cauterization. These events happened at a hospital in [facility] about 2 years ago. She does not know if she had a ulcer or other mass lesions at that time. She was scheduled to undergo an endoscopy in the last 4 to 5 days, however was unable to get it because she felt unwell. Reports she also had double pneumonia earlier this year. She is unvaccinated for influenza. CT of her chest shows large Left-sided masslike consolidation with loss of air bronchograms. Possibly pneumonia given her current history. Possibility of malignant neoplasm not excluded. Prominent axillary mediastinal and lymph nodes noted which are thought to be reactive. Has been experiencing chills. Initially upon ER arrival her blood pressure was well-maintained, however subsequently she developed hypotension and spite of 2 L fluid resuscitation. At the time of my examination blood pressure is 69/53. Requested additional 1 L fluid bolus now and initiation of Levophed infusion. Hospital Course Hospital Course 57-year-old admitted first to ICU with septic shock and hypoxic respiratory failure because of left upper and middle lobe pneumonia KITA dehydration along with altered mental status found to be secondary to amphetamines and septic shock. Initially was doing well but had respiratory failure again because left lung whiteout. Underwent bronchoscopy with pulmonology. BAL was obtained she has had persistent leukocytosis but slightly improving. Respiratory and blood cultures negative to date. However growing Kaitlynn. Patient remained on meropenem and IV fluconazole during hospital stay. Discussed with ID over the phone prior to discharge and Dr. Aguirre. Will plan to treat patient with total 14 days of antibiotic starting from February 27. Will also treat her for 10 days with fluconazole and nystatin. She is to follow-up with pulmonology within 2 weeks as an outpatient. Patient doing well vital stable. WBC count 16,000. She will be given a prescription for repeat CBC in a week. Plan to discharge home today. Patient agreeable and on board with the plan. She will follow-up with pulmonology outpatient and her PCP. Patient on room air. Physical Exam Narrative: General: No acute distress, AO x3, laying in bed. HEENT: PERRLA, pupils bilaterally equal and reactive Chest: Normal vesicular breath sounds, clear to auscultation bilaterally CVS: S1-S2 regular, no murmurs, no tachycardia, no gallops, no rubs Abdomen: Soft, nontender, no organomegaly, bowel sounds present Neuro: No focal deficits, no facial deformity, AO x3 Urinary Catheter Management: Doll: Cath Placed During This Visit: yes Reason for Continuing Indwelling Catheter: Accurate Measurement of Urinary Output in Critically Ill Patients Urinary Catheter Date of Insertion: 02/27/23 Urinary Catheter Time of Insertion: 23:15 Discharge Data Studies Completed and Pending Completed Studies During Hospitalization Category Date Time Status CT abdomen pelvis wo con [id number] Routine Cat Scan 02/27/23 22:[address] chest wo con [id number] Routine Cat Scan 03/02/23 07:[address] chest wo con [id number] Stat Cat Scan 02/27/23 18:37 Completed Modified barium swallow [FL barium swallow modifd [id number] Exams 03/03/23 09:26 Completed ] Routine XR chest 1V portable [id number] Routine Exams 03/02/23 17:25 Completed XR chest 1V portable [id number] Routine Exams 03/05/23 14:36 Completed XR chest 1V portable [id number] Stat Exams 02/27/23 17:32 Completed XR chest 1V portable [id number] Stat Exams 03/02/23 04:05 Completed Blood Cultures ([facility]) Routine Lab 02/27/23 20:16 Completed Blood Cultures ([facility]) Routine Lab 02/27/23 20:21 Completed CV. echo complete* [id number] Routine Ultrasound 02/28/23 07:57 Completed Pending at discharge Category Date Time Status Clostridium Difficile PCR Routine Lab 03/02/23 10:33 Uncollected Fungal Culture not HR/SK/BL Routine Lab 03/02/23 12:50 Results Mycobacteria, Culture w/Fluor Routine Lab 03/02/23 12:50 Results Cytology [PTH] Routine Pth 03/02/23 12:51 Received Radiology Impressions Abdomen/Pelvis CT 02/27/23 22:13 IMPRESSION: 1. No acute findings. 2. Contracted gallbladder with multiple small calcified stones. 3. 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 Chest CT 03/02/23 07:15 IMPRESSION: 1. Progressive left upper lobe consolidative pneumonia. 2. Increasing left pleural effusion. 3. Left lower lobe atelectasis, an early infiltrate could also be present there. Chest X-Ray 03/05/23 14:36 IMPRESSION: Improving left upper lobe consolidation with air bronchograms. Laboratory Results WBC 16.21 10^3/uL (3.29-11.43) H 03/07/23 06:16 RBC 3.98 10^6/uL (3.85-5.65) 03/07/23 06:16 Hgb 11.70 g/dL (11.27-16.99) 03/07/23 06:16 Hct 35.8 % (36-47) L 03/07/23 06:16 MCV 89.9 fl (85-98) 03/07/23 06:16 MCH 29.4 pg (27-33) 03/07/23 06:16 MCHC 32.7 g/dL (30-55) 03/07/23 06:16 RDW 13.6 % (12.1-15.1) 03/07/23 06:16 Plt Count 454 10^3/cmm (157-399) H 03/07/23 06:16 MPV 9.4 fL (7.4-10.4) 03/07/23 06:16 Neut % (Auto) 57.1 % 03/07/23 06:16 Lymph % (Auto) 31.3 % 03/07/23 06:16 Centre % (Auto) 3.6 % 03/07/23 06:16 Eos % (Auto) 2.8 % 03/07/23 06:16 Baso % (Auto) 0.4 % 03/07/23 06:16 Neut # (Auto) 9.24 10^3/uL (1.8-7.7) H 03/07/23 06:16 Lymph # (Auto) 5.1 10^3/uL (0.8-4.8) H 03/07/23 06:16 Centre # (Auto) 0.6 10^3/uL (0.2-0.9) 03/07/23 06:16 Eos # (Auto) 0.5 10^3/uL (0.0-0.8) 03/07/23 06:16 Baso # (Auto) 0.1 10^3/uL (0.0-0.1) 03/07/23 06:16 Nucleated RBC % (auto) 0 % 03/07/23 06:16 Total Counted 100 (0-100) 02/27/23 17:54 Atypical Lymphs % Not Reportable 02/27/23 17:54 Absolute Neutrophils 23.1 10^3/cmm (1.4-6.5) H 02/27/23 17:54 Segmented Neutrophils 84 % 02/27/23 17:54 Abs Segm Neuts (Man) 21.8 10/cmm (1.6-7.1) H 02/27/23 17:54 Band Neutrophils 5.0 % 02/27/23 17:54 Abs Band Neuts (Man) 1.3 10^3/cmm (0.0-1.2) H 02/27/23 17:54 Lymphocytes (Manual) 4 % 02/27/23 17:54 Monocytes (Manual) 1.0 % 02/27/23 17:54 Absolute Monocytes 0.3 10^3/cmm (0.1-0.6) 02/27/23 17:54 Eosinophils (Manual) 0 % 02/27/23 17:54 Absolute Eosinophils 0.0 10^3/cmm (0.0-0.7) 02/27/23 17:54 Basophils (Manual) 0.0 % 02/27/23 17:54 Absolute Basophils 0.0 10^3/cmm (0.0-0.2) 02/27/23 17:54 Nucleated RBCs # 0.0 /100WBC 03/07/23 06:16 Platelet Estimate Normal (Normal) 02/27/23 17:54 Giant Platelets Trace 02/27/23 17:54 Specimen Type Arterial 03/03/23 17:40 Sample Site Radial, left 03/03/23 17:40 ABG pH 7.37 (7.35-7.45) 03/03/23 17:40 ABG pCO2 35.9 mmHg (35-45) 03/03/23 17:40 ABG pO2 70.6 mmHg (80.0-100.0) L 03/03/23 17:40 ABG PO2/FiO2 Ratio 0 03/03/23 17:40 ABG HCO3 20.9 mmol/L (22-26) L 03/03/23 17:40 ABG O2 Saturation 93.9 03/03/23 17:40 ABG Base Excess -3.8 mmol/L (-2.0-2.0) L 03/03/23 17:40 Vlad Test Pos 03/03/23 17:40 A-a O2 Gradient 4.5 mmHg (5-10) L 03/03/23 17:40 Hematocrit 34.0 % (37-47) L 03/03/23 17:40 Hgb O2 Saturation 92.6 % (95-100) L 03/03/23 17:40 Carboxyhemoglobin 0.9 %THgb (0.4-20.1) 03/03/23 17:40 Methemoglobin 0.6 % (0.4-1.5) 03/03/23 17:40 Total Hemoglobin 11.1 g/dL (12-16) L 03/03/23 17:40 Sodium 143.0 mmol/L (131-143) 03/03/23 17:40 Potassium 3.7 mmol/L (3.5-5.0) 03/03/23 17:40 Glucose 118.0 mg/dL (70-115) H 03/03/23 17:40 Ionized Calcium 1.2 mmol/L (1.1-1.4) 03/03/23 17:40 O2 Delivery Device Room air 03/03/23 17:40 FiO2 21.0 % 03/03/23 17:40 [employer] Engineer ID [place] 03/03/23 17:40 Sodium 134 mmol/L (136-145) L 03/07/23 06:16 Potassium 3.9 mmol/L (3.5-5.1) 03/07/23 06:16 Chloride 102 mmol/L (98-107) 03/07/23 06:16 Carbon Dioxide 25 mmol/L (22-29) 03/07/23 06:16 Anion Gap 10.9 (5-19) 03/07/23 06:16 BUN 12 mg/dL (6-20) 03/07/23 06:16 Creatinine 0.4 mg/dL (0.5-0.9) L 03/07/23 06:16 GFR Calculation 165.1 mL/min (90-130) H 03/07/23 06:16 Glucose 89 mg/dL (65-115) 03/07/23 06:16 Estimat Average Glucose 108 03/01/23 04:55 Hemoglobin A1c 5.4 % (4.0-6.0) 03/01/23 04:55 Calculated Osmolality 277 mOsm/kg (285-295) L 03/07/23 06:16 Lactic Acid 3.8 mmol/L (0.5-2.2) H 02/28/23 05:54 Lactic Acid (Sepsis) 2.8 mmol/L (0.5-2.2) H 02/28/23 08:25 Calcium 8.6 mg/dL (8.5-10.5) 03/07/23 06:16 Phosphorus 2.6 mg/dL (2.5-4.5) 03/03/23 04:50 Magnesium 2.2 mg/dL (1.7-2.3) 03/07/23 06:16 Iron 6 ug/dL (37-145) L 02/28/23 03:06 TIBC 235 mcg/dl 02/28/23 03:06 % Saturation 2.5 % (20-50) L 02/28/23 03:06 Unsat Iron Binding 229 ug/dL (112-347) 02/28/23 03:06 Total Bilirubin 0.3 mg/dL (0.15-1.2) 03/06/23 02:25 AST 9 U/L (0-32) 03/06/23 02:25 ALT 9 U/L (0-33) 03/06/23 02:25 Alkaline Phosphatase 77 U/L (35-105) 03/06/23 02:25 Troponin T Baseline 38 ng/L (0-10) H 02/27/23 17:54 Troponin T 120 Minute 27.83 ng/L (0-10) H 02/27/23 20:16 Delta Troponin T -10.17 ABS# (0-10) L 02/27/23 20:16 Troponin T Hi Sens 6Hr 31.43 ng/L (0-10) H 02/27/23 23:40 Troponin T Hi Sens 6Hr Delta -6.57 ng/L (0-12) L 02/27/23 23:40 Total Protein 5.5 g/dL (6.6-8.7) L 03/06/23 02:25 Albumin 2.6 g/dL (3.5-5.2) L 03/06/23 02:25 Globulin 2.9 g/dL (1.3-4.6) 03/06/23 02:25 Triglycerides 173 mg/dL (0-150) H 03/01/23 04:55 Cholesterol 115 mg/dL (0-200) 03/01/23 04:55 LDL Cholesterol, Calc 57 mg/dL (50-129) 03/01/23 04:55 Total VLDL Cholesterol 35 mg/dL (0-30) H 03/01/23 04:55 HDL Cholesterol 23 mg/dL (60-100) L 03/01/23 04:55 Cholesterol/HDL Ratio 5.00 mg/dL (0.0-4.40) H 03/01/23 04:55 Vitamin B12 401 pg/mL (232-1245) 02/28/23 03:06 Folate 9.2 ng/mL (4.8-37.3) 03/01/23 04:55 Procalcitonin 35.37 ng/mL (0-0.5) H 02/27/23 17:54 TSH 1.00 uIU/mL (0.27-4.20) 02/28/23 03:06 TSH 1.02 uIU/mL (0.27-4.20) 02/28/23 03:06 Urine Color Yellow (Yellow) 02/27/23 23:36 Urine Appearance Hazy (CLEAR) A 02/27/23 23:36 Urine pH 5 (5-7) 02/27/23 23:36 Ur Specific [place] 1.005 (1.005-1.030) 02/27/23 23:36 Urine Protein Trace (Negative) 02/27/23 23:36 Urine Glucose (UA) Norm (Normal) 02/27/23 23:36 Urine Ketones Negative (Negative) 02/27/23 23:36 Urine Blood 3+ (Negative) H 02/27/23 23:36 Urine Nitrate Negative (Negative) 02/27/23 23:36 Urine Bilirubin Neg (Negative) 02/27/23 23:36 Urine Urobilinogen Neg mg/dL (Negative) 02/27/23 23:36 Ur Leukocyte Esterase Negative (Negative) 02/27/23 23:36 Urine RBC 0-4 /hpf (0-2) H 02/27/23 23:36 Urine WBC 5-10 /hpf (0-5) H 02/27/23 23:36 Ur Squamous Epith Cells None /hpf (0-5) 02/27/23 23:36 Amorphous Sediment Not Reportable 02/27/23 23:36 Urine Bacteria 1+ /hpf (NONE) H 02/27/23 23:36 Urine Mucus 1+ /hpf 02/27/23 23:36 Nasal Influ A H1 2008 PCR Not detected (NOT DETECT) 02/28/23 08:10 Bronch Specimen Source Left upper lobe 03/02/23 12:50 Bronchial Fluid Color Slight pink 03/02/23 12:50 Bronchial Fluid Appearance Cloudy (CLEAR) 03/02/23 12:50 Bronch Cells Counted 245 03/02/23 12:50 Bronchial Neutrophils 87.00 % (0.9-2.3) H 03/02/23 12:50 Bronchial Lymphocytes 13.00 % (10.71-12.91) H 03/02/23 12:50 Bronchial Diff Comment Yes 03/02/23 12:50 Vancomycin Trough < 4.0 ug/mL (10-15) L 03/03/23 08:00 Urine Opiates Screen Negative ng/mL (Negative) 02/27/23 23:36 Ur Barbiturates Screen Negative ng/mL (Negative) 02/27/23 23:36 Ur Phencyclidine Scrn Negative ng/mL (Negative) 02/27/23 23:36 Ur Amphetamines Screen Positive ng/mL (Negative) H 02/27/23 23:36 U Benzodiazepines Scrn Positive ng/mL (Negative) H 02/27/23 23:36 Urine Cocaine Screen Negative ng/mL (Negative) 02/27/23 23:36 U Marijuana (THC) Screen Negative ng/mL (Negative) 02/27/23 23:36 Adenovirus (PCR) Not detected (NOT DETECT) 02/28/23 08:10 C. pneumoniae DNA (PCR) Not detected (NOT DETECT) 02/28/23 08:10 Coronavirus 229E (PCR) Not detected (NOT DETECT) 02/28/23 08:10 HIV 1&2 Ab & HIV 1 Ag Non-reactive (Non-Reactiv) 02/28/23 03:06 HIV 1&2 Antibody Non-reactive (Non-Reactiv) 02/28/23 03:06 Human Metapneumovir PCR Not detected (NOT DETECT) 02/28/23 08:10 Influenza A (H1) PCR Not detected (NOT DETECT) 02/28/23 08:10 Influenza A (H3) PCR Not detected (NOT DETECT) 02/28/23 08:10 Influenza Type A Ag negative (Negative) 02/27/23 18:30 Influenza Type A (PCR) Not detected (NOT DETECT) 02/28/23 08:10 Influenza Type B Ag negative (Negative) 02/27/23 18:30 Influenza Type B (PCR) Not detected (NOT DETECT) 02/28/23 08:10 Legionella Source Bronch 03/02/23 12:50 L.pneumophila Antigen Not detected 03/02/23 12:50 M. pneumoniae (PCR) Not detected (NOT DETECT) 02/28/23 08:10 Parainfluenza 1 (PCR) Not detected (NOT DETECT) 02/28/23 08:10 Parainfluenza 2 (PCR) Not detected (NOT DETECT) 02/28/23 08:10 Parainfluenza 3 (PCR) Not detected (NOT DETECT) 02/28/23 08:10 Parainfluenza 4 (PCR) Not detected (NOT DETECT) 02/28/23 08:10 RSV Type A (PCR) Not detected (NOT DETECT) 02/28/23 08:10 RSV Type B (PCR) Not detected (NOT DETECT) 02/28/23 08:10 Entero/Rhino (PCR) Not detected (NOT DETECT) 02/28/23 08:10 SARS-CoV-2 (PCR) Not detected (NOT DETECT) 02/28/23 08:10 SARS-CoV-2 Ag (Rapid) Negative (Negative) 02/27/23 18:30 MRSA (PCR) Not detected (NOT DETECTED) 02/28/23 13:30 Vitals Last Vital Signs Temp 98.3 F 03/07/23 11:30 Pulse 91 03/07/23 13:16 Resp 20 H 03/07/23 13:16 BP 97/60 03/07/23 11:30 Pulse Ox 94 03/07/23 13:16 O2 Del Method Room Air 03/07/23 13:16 O2 Flow Rate 3 03/06/23 08:55 FiO2 4 03/02/23 08:00 Discharge Plan Discharge Patient Disposition: Home Condition: Stable Prescriptions: New nystatin 100,000 unit/mL Suspension 500,000 unit PO QID 10 Days Qty: 100 0RF escitalopram oxalate 10 mg Tablet 20 mg PO DAILY Qty: 30 0RF fluconazole 200 mg tablet 200 mg PO DAILY Qty: 10 0RF amoxicillin-pot clavulanate 875-125 mg tablet 1 tab PO BID 7 Days Qty: 14 0RF albuterol sulfate 90 mcg/actuation aero powdr breath act w/sensor 2 inh inhalation Q6H PRN (Reason: shortness of breath or wheezing) 14 Days Qty: 1 0RF prednisone 20 mg tablet 40 mg PO DAILY 2 Days Qty: 4 0RF Discharge Orders: Discharge Order (Routine); Ordered 03/07/23 Ordered By: Cammie Nesbitt Other Ambulatory Orders: Complete Blood Count w/Auto (Routine) Timeframe: 1 Week Location: Determined by Patient Ordered By: Cammie Nesbitt XR chest 1V portable [id number] (Routine) Timeframe: 2 Weeks Facility: [facility] - Location: Radiology [facility] Ordered By: Cammie Nesbitt Referrals: AlexrJay MD [Physician] - 03/21/23 2:15 pm (We have notified your physician's clinic of the need for a follow-up appointment to be scheduled. If you have not heard from them within the next 2 business days, please call them directly. ) Conrado Wills [Primary Care Provider] - 1 week (We have notified your physician's clinic of the need for a follow-up appointment to be scheduled. If you have not heard from them within the next 2 business days, please call them directly. ) Discharge Diet: Regular Discharge Activity: Resume usual activity Patient Instructions: Albuterol (By breathing), Prednisone (By mouth), Nystatin (By mouth), Amoxicillin/Clavulanate Potassium (By mouth), Fluconazole (By mouth), Escitalopram (By mouth), Community Acquired Pneumonia (GEN), Opioid Safety, Pain Management Activity Restrictions/Additional Instructions: [facility] SCHEDULING WILL CALL WITH APPOINTMENT FOR EXRAY Discharge Attestations Time Spent in Discharge Care*: greater than 30 min Quality Metrics Clinical Quality Measures [ No reported AMI, CVA or VTE this stay] Coding Level of Care Code Acute Code for Chg Fwd Diagnoses Septic shock A41.9; R65.21 Community acquired pneumonia J18.9 Laterality: left Lung location: upper lobe of lung Acute hypoxemic respiratory failure J96.01 Acute kidney injury N17.9 Hypomagnesemia E83.42 Hypokalemia E87.6 Hyponatremia E87.1 Amphetamine abuse F15.10
== END 2023-03-07 21:51 | disposition home or self-care (01) | DRG 193 ==
LOC: ER 20:13 → MEDSURG 20:34 → ICU 23:27 → MEDSURG 03-03 16:53
PROVIDERS: Internal Medicine Pulmonary Disease; Student in an Organized Health Care Education/Training Program; Admitting Provider Student in an Organized Health Care Education/Training Program; Emergency Provider Emergency Medicine; PCP Family Medicine; Visit Provider Internal Medicine
PROC: 0BJ08ZZ Inspection of Tracheobronchial Tree, Via Natural or Artificial Opening Endoscopic (ICD-10-PCS; CPT 31622; principal; 2023-03-02 12:00)
DX: J18.9 Pneumonia, unspecified organism (principal); J96.01 Acute respiratory failure with hypoxia; R65.21 Severe sepsis with septic shock; N17.0 Acute kidney failure with tubular necrosis; E87.1 Hypo-osmolality and hyponatremia; B37.89 Other sites of candidiasis; R91.8 Other nonspecific abnormal finding of lung field; F17.210 Nicotine dependence, cigarettes, uncomplicated; E83.42 Hypomagnesemia; E86.0 Dehydration; E87.6 Hypokalemia; F15.10 Other stimulant abuse, uncomplicated; Z11.52 Encounter for screening for COVID-19
CPT/HCPCS: 36415; 36600; 51702; 71045; 71250; 74176; 74230; 80048; 80051; 80053; 80061; 80202; 80306; 80503; 81001; 81003; 82274; 82330; 82607; 82746; 82805; 83036; 83540; 83550; 83605; 83735; 84100; 84145; 84443; 84484; 85007; 85025; 86403; 87015; 87040; 87070; 87102; 87106; 87116; 87205; 87206; 87278; 87426; 87449; 87486; 87581; 87633; 87641; 87801; 87804; 87806; 88112; 88305; 89050; 92610; 92611; 93005; 93306; 94640; 96365; 96367; 97110; 97161; 97530; 99285; J0456; J1450; J1756; J2185; J2270; J2371; J2543; J2704; J2920; J3370; J3475; J3480; J3490; J7030; J7050; J7512; J7608; J7614; J7626; J7644

== ENCOUNTER → 2024-11-12 15:45 | Outpatient (BNVA) | payer MEDICAID, SELFPAY | PROVIDERS: PCP Family Medicine; Visit Provider Nurse Practitioner | DX: M79.622 Pain in left upper arm (principal) | CPT/HCPCS: 73030 ==